=== PATIENT | female | born 1975 | race Two or more races ===

== ENCOUNTER 2020-08-07 14:39 | Outpatient (REF) | payer OTHER, SELFPAY | END 2020-08-07 14:40 | disposition home or self-care (01) | LOC: HO.LAB 14:39 | PROVIDERS: Visit Provider Internal Medicine | DX: Z20.828 Contact with and (suspected) exposure to other viral communicable diseases (principal) | CPT/HCPCS: C9803; U0003 ==

== ENCOUNTER 2020-08-27 09:41 | Outpatient (REF) | payer OTHER, SELFPAY ==
[2020-08-27 11:08] LABS: Alanine Aminotransferase 21 U/L (0-31); Albumin Level 4.6 g/dL (3.5-5.0); Alkaline Phosphatase 46 U/L (39-117); Anion Gap 13 (12-20); Aspartate Amino Transferase 21 U/L (5-31); Bilirubin Total 0.4 mg/dL (0.0-1.0); Blood Urea Nitrogen 17 mg/dL (9-16); Calcium 9.2 mg/dL (8.4-10.2); Carbon Dioxide 30 mmol/L (22-29); Chloride 104 mmol/L (96-108); Cholesterol 218 mg/dL; Estimated Glomerular Filt Rate > 60; Glucose Fasting 100 mg/dL (60-99); HDL Cholesterol 60 mg/dL; LDL Cholesterol Calculated 139 mg/dl; Potassium 5.1 mmol/l (3.3-5.1); Sodium 142 mmol/L (135-145); Total Protein 7.4 g/dL (6.5-8.0); Triglycerides 96 mg/dL
[2020-08-27 11:17] LABS: Estimated Average Glucose 131 mg/dL; Hemoglobin A1c % 6.2 %
[2020-08-27 11:29] LABS: TSH reflex Free T4 73.63 mIU/mL (0.32-4.0)
[2020-08-27 12:03] LABS: Free T4 (Free Thyroxine) 0.45 ng/dL (0.71-1.85)
== END 2020-08-27 09:42 | disposition home or self-care (01) ==
LOC: HO.LAB 09:41
PROVIDERS: PCP Physician Assistant; Visit Provider Physician Assistant
DX: E03.9 Hypothyroidism, unspecified (principal); F41.1 Generalized anxiety disorder; Z13.220 Encounter for screening for lipoid disorders; Z13.1 Encounter for screening for diabetes mellitus
CPT/HCPCS: 36415; 80053; 80061; 83036; 84439; 84443

== ENCOUNTER 2020-10-15 08:35 | Outpatient (REF) | payer OTHER, SELFPAY ==
[2020-10-15 09:28] LABS: Anion Gap 12 (12-20); Blood Urea Nitrogen 16 mg/dL (9-16); Calcium 9.1 mg/dL (8.4-10.2); Carbon Dioxide 31 mmol/L (22-29); Chloride 102 mmol/L (96-108); Estimated Glomerular Filt Rate > 60; Glucose Random 106 mg/dL (60-115); Sodium 140 mmol/L (135-145)
[2020-10-15 09:50] LABS: TSH reflex Free T4 3.43 uIU/mL (0.32-4.0)
== END 2020-10-15 08:36 | disposition home or self-care (01) ==
LOC: HO.LAB 08:35
PROVIDERS: PCP Physician Assistant; Visit Provider Physician Assistant
DX: E03.9 Hypothyroidism, unspecified (principal)
CPT/HCPCS: 36415; 80048; 84443

== ENCOUNTER 2021-02-10 08:05 | Outpatient (REF) | payer OTHER, SELFPAY ==
[2021-02-10 09:30] LABS: Alanine Aminotransferase 33 U/L (0-31); Albumin Level 4.6 g/dL (3.5-5.0); Alkaline Phosphatase 56 U/L (39-117); Anion Gap 12 (12-20); Aspartate Amino Transferase 27 U/L (5-31); Bilirubin Total 0.4 mg/dL (0.0-1.0); Blood Urea Nitrogen 13 mg/dL (9-16); Calcium 9.1 mg/dL (8.4-10.2); Carbon Dioxide 29 mmol/L (22-29); Chloride 103 mmol/L (96-108); Cholesterol 169 mg/dL; Estimated Glomerular Filt Rate > 60; Glucose Fasting 101 mg/dL (60-99); HDL Cholesterol 57 mg/dL; Potassium 4.6 mmol/L (3.3-5.1); Sodium 139 mmol/L (135-145); Total Protein 7.4 g/dL (6.5-8.0)
[2021-02-10 09:32] LABS: LDL Cholesterol Calculated 99 mg/dl; Triglycerides 65 mg/dL
[2021-02-10 09:51] LABS: TSH reflex Free T4 0.24 uIU/mL (0.32-4.0)
[2021-02-10 10:32] LABS: Free T4 (Free Thyroxine) 1.19 ng/dL (0.71-1.85)
== END 2021-02-10 08:06 | disposition home or self-care (01) ==
LOC: HO.LAB 08:05
PROVIDERS: PCP Physician Assistant; Visit Provider Physician Assistant
DX: E03.9 Hypothyroidism, unspecified (principal)
CPT/HCPCS: 36415; 80053; 80061; 84439; 84443

== ENCOUNTER 2021-08-12 10:07 | Outpatient (REF) | payer OTHER, SELFPAY | END 2021-08-12 10:08 | disposition home or self-care (01) | LOC: HO.HMGCLDS 10:07 | PROVIDERS: Visit Provider Internal Medicine | DX: Z20.822 Contact with and (suspected) exposure to COVID-19 (principal) | CPT/HCPCS: C9803; U0003; U0005 ==

== ENCOUNTER 2022-01-18 08:27 | Outpatient (REF) | payer OTHER, SELFPAY ==
[2022-01-18 09:10] LABS: Hematocrit 38.2 % (37.0-47.0); Hemoglobin 11.9 g/dl (12.0-16.0); Mean Corpuscular HGB Conc 31.2 g/dl (31.0-35.0); Mean Corpuscular Hemoglobin 24.5 pg (27.0-33.0); Mean Corpuscular Volume 78.8 fL (80.0-98.0); Mean Platelet Volume 9.5 fL (9.4-12.3); Platelet Count 274 X10*3/uL (160-400); Red Blood Count 4.85 X10*6/uL (4.20-5.50); Red Cell Distribution Width 16.9 % (11.0-16.0); White Blood Count 4.8 X10*3/uL (4.8-10.8)
[2022-01-18 09:33] LABS: Alanine Aminotransferase 22 U/L (0-31); Aspartate Amino Transferase 17 U/L (5-31); HDL Cholesterol 62 mg/dL; Iron 180 mcg/dL (30-160); Lipase 58 U/L (8-78); Percent Iron Saturation 47 % (15-50); Total Iron Binding Capacity 385 mcg/dL (228-428); Unsaturated Iron Binding 205 ug/dL
[2022-01-18 09:42] LABS: Estimated Average Glucose 120 mg/dL; Hemoglobin A1c % 5.8 %
[2022-01-18 09:56] LABS: TSH reflex Free T4 13.68 uIU/mL (0.32-4.0)
[2022-01-18 10:28] LABS: Free T4 (Free Thyroxine) 0.97 ng/dL (0.71-1.85)
[2022-01-18 12:59] LABS: Albumin Level 4.7 g/dL (3.5-5.0); Alkaline Phosphatase 60 U/L (39-117); Anion Gap 14 (12-20); Bilirubin Total 0.7 mg/dL (0.0-1.0); Blood Urea Nitrogen 20 mg/dL (9-16); Calcium 9.3 mg/dL (8.4-10.2); Carbon Dioxide 25 mmol/L (22-29); Chloride 105 mmol/L (96-108); Cholesterol 177 mg/dL; Estimated Glomerular Filt Rate > 60; Glucose Fasting 118 mg/dL (60-99); LDL Cholesterol Calculated 100 mg/dl; Potassium 4.8 mmol/L (3.3-5.1); Sodium 139 mmol/L (135-145); Total Protein 7.5 g/dL (6.5-8.0); Triglycerides 75 mg/dL
== END 2022-01-18 08:28 | disposition home or self-care (01) ==
LOC: HO.LAB 08:27
PROVIDERS: PCP Physician Assistant; Visit Provider Physician Assistant
DX: Z13.1 Encounter for screening for diabetes mellitus (principal); Z13.220 Encounter for screening for lipoid disorders; R10.13 Epigastric pain; E03.9 Hypothyroidism, unspecified; D50.9 Iron deficiency anemia, unspecified
CPT/HCPCS: 36415; 80053; 80061; 83036; 83540; 83690; 84439; 84443; 85027

== ENCOUNTER 2022-02-05 09:49 | Outpatient (REF) | payer OTHER, SELFPAY | END 2022-02-05 09:50 | disposition home or self-care (01) | LOC: HO.XRAY 09:49 | PROVIDERS: PCP Physician Assistant; Visit Provider Physician Assistant | DX: Z13.89 Encounter for screening for other disorder (principal) ==

== ENCOUNTER 2022-02-23 09:50 | Outpatient (REF) | payer OTHER, SELFPAY ==
--- NOTE | ~2022-02-23 | FL_ITS ---
EXAMINATION: XR FLUOROSCOPY UPPER GI WITH AIR CLINICAL INFORMATION: Abdominal distention. COMPARISON: 04/18/2006 report. TECHNIQUE: Air-contrast upper GI examination. FINDINGS: Patient swallowed thin and thick barium and half-inch diameter barium tablet without difficulty. Effervescent crystals were given for the study. There is normal apposition of the vocal cords while saying E. There is normal elevation of the soft palate while saying candy. No nasopharyngeal reflux or tracheal aspiration was identified. There is normal esophageal motility without persistent stricture or mucosal abnormality. No hiatal hernia was identified. No gastroesophageal reflux was elicited including with water siphon test. The stomach demonstrated normal distensibility without evidence of abnormal mass or ulceration. There is a question of some filling defects about the fundus however these were seen to represent gastric folds. There was no delay in gastric emptying. The duodenal bulb and sweep appeared unremarkable. FLUOROSCOPY TIME: 1.5 minutes. DOSE AREA PRODUCT: 8.770 uGy-cm2 (boland-centimeter squared) FL/FL upper GI w air IMPRESSION: Normal air-contrast upper GI examination.
== END 2022-02-23 09:51 | disposition home or self-care (01) ==
LOC: HO.XRAY 09:50
PROVIDERS: PCP Physician Assistant; Visit Provider Physician Assistant
DX: R14.0 Abdominal distension (gaseous) (principal)
CPT/HCPCS: 74246

== ENCOUNTER 2022-05-13 12:23 | Outpatient (REF) | payer OTHER, SELFPAY ==
[2022-05-13 13:57] LABS: TSH reflex Free T4 0.32 uIU/mL (0.32-4.0)
== END 2022-05-13 12:24 | disposition home or self-care (01) ==
LOC: HO.LAB 12:23
PROVIDERS: PCP Physician Assistant; Visit Provider Nurse Practitioner Family
DX: E03.9 Hypothyroidism, unspecified (principal)
CPT/HCPCS: 36415; 84443

== ENCOUNTER 2025-01-29 09:16 | Outpatient (REF) | payer MEDICAID, SELFPAY ==
--- OUTSIDE RECORDS SUMMARY | 2025-01-29 09:55 | XMS_ITS | Clinical Summary ---
Author Organization [facility] Address [address] [place] [address] Care Team Providers Care Cheese Cooker Name Role Phone Richard Anderson Primary Care Provider Allergies Active Allergy Reactions Criticality Noted Date Comments Penicillins 03/11/2017 Medications Medication Sig Dispensed Refills Start Date End Date Status levothyroxine (SYNTHROID, LEVOXYL) tablet 125 mcg TAKE 1 TABLET (125 MCG TOTAL) BY MOUTH EVERY MORNING ON AN EMPTY STOMACH. 30 tablet 5 12/14/2019 Active venlafaxine (EFFEXOR-XR) 150 MG 24 hr capsule 0 05/31/2021 Active temazepam (RESTORIL) 30 MG capsule Take 1 capsule (30 mg total) by mouth every night at bedtime as needed for sleep. 30 capsule 1 06/26/2021 Active Active Problems Problem Noted Date Diagnosed Date COVID-19 virus infection 10/03/2020 Osteopenia of multiple sites 04/01/2020 Weight loss 10/02/2019 BRCA1 gene mutation positive in female 8 Acquired hypothyroidism 11/01/2017 Insomnia 11/01/2017 Malignant neoplasm of upper- outer quadrant of right breast in female, estrogen receptor positive 07/12/2017 Cancer Staging:Pathologic stage from 01/26/2016:Stage IA(pT1b, pN0, cM0, G1, ER: Positive, [place]: Positive, HER2: Negative, Oncotype DX score: 10) - Signed by Karan Martinez MD on 11/19/2018 Genetic susceptibility to malignant neoplasm of breast 07/12/2017 Hot flashes related to aromatase inhibitor thera py 07/12/2017 Anxiety 07/12/2017 Nausea 07/12/2017 New daily persistent headache 07/12/2017 Resolved Problems Problem Noted Date Diagnosed Date Resolved Date BRCA2 gene mutation positive in female 01/31/2018 07/25/2018 Family History Medical History Relation Name Comments Cancer Maternal Aunt ovarian ca Cancer Maternal Grandmother uterine ca. Cancer Mother breast ca Cancer Paternal Uncle head ,neck ca . Relation Name Status Comments Maternal Aunt Maternal Grandmother Mother Paternal Uncle Social History Tobacco Use Types Packs/Day Years Used Date Smoking Tobacco: Never Smokeless Tobacco: Never Alcohol Use Standard Drinks/Week Comments No 0 (1 standard drink = 0.6 oz pur e alcohol) ocacasinaly Sex and Gender Information Value Date Recorded Sex Assigned at Not on file Gender Identity Not on file Sexual Orientation Not on file Job Start Date Occupation Industry Not on file Not on file Not on file Last Filed Vital Signs Vital Sign Reading Time Taken Comments Blood Pressure 121/76 05/07/2022 3:00 PM EDT Pulse 87 05/07/2022 3:00 PM EDT Temperature 36 C (96.8 F) 05/07/2022 3:00 PM EDT Respiratory Rate 16 05/07/2022 3:00 PM EDT Oxygen Saturation 100% 05/07/2022 3:00 PM EDT ROOM AIR Inhaled Oxygen Concentration - - Weight 79.3 kg (174 lb 12.8 oz) 06/26/2021 2:27 PM EST Height 162.6 cm (5' 4 ) 06/26/2021 2:27 PM EST Body Mass Index 30 06/26/2021 2:27 PM EST Plan of Treatment Health Maintenance Due Date Last Done Comments Hepatitis B Vaccines (1 of 3 - 3-dose series) 1973 Hepatitis C Screening 1973 COVID-19 Vaccine (#1) 1978 Pneumococcal Vaccine (1 of 2 - PCV) 1979 Depression Screening 1985 Preventative Health Evaluation 1991 DTap / Tdap / Td (1 - Tdap) 1992 Shingrix-Zoster Vaccine (1 of 2) 1992 Cervical Cancer Screening (P ap Smear) 1994 Colon Cancer Screening (Colonoscopy) 2018 Breast Cancer Screening (Mammogram) 2023 Influenza Vaccine (Season Ended) 2025 RSV Ped < 20 months Aged Out No longe r eligible based on patient's age to complete this topic Care Teams Cheese Cooker Relationship Specialty Start Date End Date Richard Anderson PA [address] [place] [phone] PCP - General Physician Hand Gluer And Slicer 06/26/21
[2025-01-29 11:24] LABS: MANUAL DIFF FLAG NO
[2025-01-29 11:37] LABS: Basophils Percent Auto 0.7 % (0-2); Eosinophils Absolute Auto 0.1 X10*3/uL (0.0-0.4); Eosinophils Percent Auto 1.1 % (0-4); Hematocrit 37.8 % (37.0-47.0); Imm Gran Abs Auto 0.01 X10*3/uL (0.00-0.03); Imm Gran Pct Auto 0.2 % (0.0-0.4); Lymphocytes Absolute Auto 2.4 X10*3/uL (1.2-4.9); Lymphocytes Percent Auto 53.5 % (20-40); Mean Corpuscular HGB Conc 31.7 g/dl (31.0-35.0); Mean Corpuscular Hemoglobin 24.5 pg (27.0-33.0); Mean Corpuscular Volume 77.1 fL (80.0-98.0); Mean Platelet Volume 10.7 fL (9.4-12.3); Monocytes Absolute Auto 0.6 X10*3/uL (0.1-1.2); Monocytes Percent Auto 12.5 % (2-11); Neutrophils Absolute Auto 1.4 x10*3/uL (2.0-8.3); Platelet Count 238 X10*3/uL (160-400); Red Cell Distribution Width 15.7 % (11.0-16.0); White Blood Count 4.4 X10*3/uL (4.8-10.8)
[2025-01-29 11:55] LABS: Alanine Aminotransferase 16 U/L (0-31); Albumin Level 4.5 g/dL (3.5-5.0); Alkaline Phosphatase 40 U/L (39-117); Anion Gap 13 (12-20); Aspartate Amino Transferase 20 U/L (5-31); Bilirubin Total 0.3 mg/dL (0.0-1.0); Blood Urea Nitrogen 13 mg/dL (9-16); Calcium 9.3 mg/dL (8.4-10.2); Carbon Dioxide 27 mmol/L (22-29); Chloride 105 mmol/L (96-108); Cholesterol 172 mg/dL (<200); Estimated Glomerular Filt Rate > 60; Glucose Random 89 mg/dL (60-115); HDL Cholesterol 60 mg/dL (>40); LDL Cholesterol Calculated 97 mg/dL (<100); Potassium 4.5 mmol/L (3.3-5.1); Sodium 140 mmol/L (135-145); Total Protein 7.1 g/dL (6.5-8.0); Triglycerides 77 mg/dL (<150)
[2025-01-29 12:13] LABS: TSH reflex Free T4 0.78 uIU/mL (0.32-4.0)
[2025-01-29 12:14] LABS: Valproate 63.9 mcg/mL (50.0-100.0)
== END 2025-01-29 09:17 | disposition home or self-care (01) ==
LOC: HO.HHCL 09:16
PROVIDERS: PCP Family Medicine; Visit Provider Family Medicine
DX: E03.9 Hypothyroidism, unspecified (principal); F31.9 Bipolar disorder, unspecified
CPT/HCPCS: 36415; 80053; 80061; 80164; 84443; 85025

== ENCOUNTER 2025-02-05 13:27 | Outpatient (REF) | payer MEDICAID, SELFPAY ==
--- NOTE | ~2025-02-05 | XR_ITS ---
EXAMINATION: XR CERVICAL SPINE 2-3 VIEWS HISTORY: PAIN COMPARISON: There are no prior studies available for comparison. FINDINGS: AP, lateral, and open-mouth odontoid views of the cervical spine are submitted. Osseous mineralization is normal. Seven cervical vertebral bodies are identified maintaining normal height and alignment without evidence of fracture or subluxation. There are mild degenerative changes are seen at C5-6 and C6-7, with anterior osteophyte formation. The odontoid and lateral masses of C1 are intact. There is no prevertebral soft tissue swelling. XR/XR cervical spine 3V IMPRESSION: Mild degenerative changes. Electronically signed by: Dyllan Swift MD 02/05/2025 03:20 PM EDT
--- NOTE | ~2025-02-05 | XR_ITS ---
EXAMINATION: XR KNEE 4 OR MORE VIEWS LEFT HISTORY: diffuse joint and bone pain, worsening neck and back pain COMPARISON: Comparison is made with the prior examination dated 07/23/2019. FINDINGS: Four views of the left knee are submitted. Osseous mineralization is normal. There is no fracture or dislocation. There is minimal degenerative change of the medial compartment with osteophyte formation. The remaining joint spaces are maintained. The soft tissues are unremarkable. There is no joint effusion. XR/XR knee LT 4V IMPRESSION: Minimal degenerative changes of the medial compartment. Electronically signed by: Dyllan Swift MD 02/05/2025 03:18 PM EDT
--- NOTE | ~2025-02-05 | XR_ITS ---
EXAMINATION: XR KNEE 4 OR MORE VIEWS RIGHT HISTORY: diffuse joint and bone pain, worsening neck and back pain COMPARISON: Comparison is made with the prior examination dated 11/27/2018. FINDINGS: Four views of the right knee are submitted. Osseous mineralization is normal. There is no fracture or dislocation. The joint spaces are preserved. There is a small joint effusion. XR/XR knee RT 4V IMPRESSION: Small joint effusion. Otherwise unremarkable examination of the right knee. Electronically signed by: Dyllan Swift MD 02/05/2025 03:17 PM EDT
--- NOTE | ~2025-02-05 | XR_ITS ---
EXAMINATION: XR HAND 3 OR MORE VIEWS LEFT HISTORY: diffuse joint and bone pain, worsening neck and back pain COMPARISON: There are no prior studies available for comparison. FINDINGS: Four views of the left hand are submitted. Osseous mineralization is normal. There is no fracture or dislocation. The joint spaces are preserved. The soft tissues are unremarkable. XR/XR hand LT min 3V IMPRESSION: Unremarkable examination of the left hand. Electronically signed by: Dyllan Swift MD 02/05/2025 03:15 PM EDT
--- NOTE | ~2025-02-05 | XR_ITS ---
EXAMINATION: XR LUMBOSACRAL SPINE CLINICAL INFORMATION: diffuse joint and bone pain, worsening neck and back pain COMPARISON: None available. TECHNIQUE: Three views of the lumbosacral spine. FINDINGS: Surgical clips are seen projecting left of L4-5 and along the left sacrum and in the lower right hemipelvis. There are 5 nonrib-bearing lumbar segments. Vertebral body height and alignment is preserved. There is mild disc space narrowing T12-L1 and L1-2. XR/XR lumbar spine 2-3V IMPRESSION: Mild degenerative disc disease T12-L1 and L1-2 Electronically signed by: Jim Birch MD 02/06/2025 03:57 PM EDT
--- NOTE | ~2025-02-05 | XR_ITS ---
EXAMINATION: XR HAND 3 OR MORE VIEWS RIGHT HISTORY: diffuse joint and bone pain, worsening neck and back pain COMPARISON: There are no prior studies available for comparison. FINDINGS: Three views of the right hand are submitted. Osseous mineralization is normal. There is no fracture or dislocation. The joint spaces are preserved. The soft tissues are unremarkable. XR/XR hand RT min 3V IMPRESSION: Unremarkable examination of the right hand. Electronically signed by: Dyllan Swift MD 02/05/2025 03:14 PM EDT
--- OUTSIDE RECORDS SUMMARY | 2025-02-05 14:39 | XMS_ITS | Clinical Summary ---
Author Organization [facility] Address [address] [place] [address] Care Team Providers Care Seat Mender Name Role Phone Richard Anderson Primary Care Provider [phone] Allergies Active Allergy Reactions Criticality Noted Date [...] 01/26/2016:Stage IA(pT1b, pN0, cM0, G1, ER: Positive, [place]: Positive, HER2: Negative, Oncotype DX score: 10) [...] age to complete this topic Care Teams Seat Mender Relationship Specialty Start Date End Date Richard Anderson PA [address] [place] [phone] PCP - General Physician Home Care Manager 06/26/21
--- OUTSIDE RECORDS SUMMARY | 2025-02-05 14:39 | XMS_ITS | Encounter Summary ---
Author Organization [employer] Address [address] [place] [address] Care Team Providers Care Security System Technician Name Role Phone Jo Chatman Primary Care Provider + [phone] Encounter Details Date Type Department Care Team (Latest Contact Info) Description 02/05/2025 Travel Social History Tobacco Use Types Packs/Day Years Used Date Smoking Tobacco: Never Smokeless Tobacco: Never Alcohol Use Standard Drinks/Week Comments Never 0 (1 standard drink = 0.6 oz pur e alcohol) Depression Answer Date Recorded Patient Health Questionnaire-9 Score 21 02/05/2025 Patient Health Questionnaire-9 Score 21 02/05/2025 Last PHQ-9: Questionnaire Data Not on file 0 02/05/2025 Housing Stability Answer Date Recorded What is your housing situation today? I have mary zhao 01/29/[address] you li ve. Do you have problems with any of the following? None of the above 01/29/2025 Food Insecurity Answer Date Recorded Within the past 12 months, y ou worried that your food would run out before you got money to buy more: Often true 2024 Within the past 12 months,th e food you bought just didn't last and you didn't have enough money to get more: Sometimes True 02/05/2025 Transportation Answer Date Recorded In the past 12 months, has l ack of transportation kept you from medical appts, meetings, work or from getting things needed for daily living? No 01/29/2025 Utilities Answer Date Recorded In the past 12 months, has t he electric, gas, oil or water company threatened to shut off services in your home? No 01/29/2025 Depression Answer Date Recorded Patient Health Questionnaire-2 Score 6 02/05/2025 Internet Access Answer Date Recorded Internet Access Q1 Yes 01/29/2025 Internet Access Q2 Not on file 01/29/2025 Comments No Sex and Gender Information Value Date Recorded Sex Assigned at Female 01/08/2025 6:29 PM EDT Legal Sex Female 11:03 AM EDT Gender Identity Female 01/08/2025 6:29 PM EDT Sexual Orientation Choose not to disclose 2024 6:29 PM EDT documented as of this encounter Functional Status * Over the past 2 weeks, how often have you been bothered by any of the following problems? Question Answer Date of Assessment Author Patient Health Questionnaire -2 Score 6 02/05/2025 1:52 PM EDT Liseth Silva MA * Little interest or pleasure in doing things Answer Date of Assessment Author Nearly every day 02/05/2025 1:52 PM EDT Liseth Silva MA * Feeling down, depressed, or hopeless Answer Date of Assessment Author Nearly every day 02/05/2025 1:52 PM EDT Liseth Silva MA * Trouble falling or staying asleep, or sleeping too much Answer Date of Assessment Author Nearly every day 02/05/2025 1:52 PM EDT Liseth Silva MA * Feeling tired or having little energy Answer Date of Assessment Author Nearly every day 02/05/2025 1:52 PM EDT Liseth Silva MA * Poor appetite or overeating Answer Date of Assessment Author Nearly every day 02/05/2025 1:52 PM EDT Liseth Silva MA * Feeling bad about yourself - or that you are a failure or have let yourself or your family down Answer Date of Assessment Author Nearly every day 02/05/2025 1:52 PM EDT Liseth Silva MA * Trouble concentrating on things, such as reading the newspaper or watching television Answer Date of Assessment Author Nearly every day 02/05/2025 1:52 PM EDT Liseth Silva MA * Moving or speaking so slowly that other people could have noticed? Or the opposite - being so fidgety or restless that you have been moving around a lot more than usual. Answer Date of Assessment Author Not at all 02/05/2025 1:52 PM EDT Imani Silva MA * Thoughts that you would be better off or hurting yourself in some way Answer Date of Assessment Author Not at all 02/05/2025 1:52 PM EDT Imani Silva MA * Patient Health Questionnaire-9 Score Answer Date of Assessment Author 21 02/05/2025 1:52 PM EDT Imani Silva MA * How difficult have these problems made it for you to do your work, take care of things at home, or get along with other people? Answer Date of Assessment Author Extremely difficult 02/05/2025 1:52 PM EDT Liseth Henry MA * Over the last 2 weeks, how often have you been bothered by any of the following problems? Question Answer Date of Assessment Author Feeling nervous, anxious, or on edge 3 02/05/2025 1:52 PM EDT Liseth Silva MA Not being able to stop or co ntrol worrying 3 02/05/2025 1:52 PM EDT Liseth Silva MA Worrying too much about diff erent things 3 02/05/2025 1:52 PM EDT Liseth Silva MA Trouble relaxing 3 02/05/2025 1:52 PM EDT Liseth Lomas MA Being so restless that it is hard to sit still 3 02/05/2025 1:52 PM EDT Liseth Silva MA Becoming easily annoyed or irritable 3 02/05/2025 1:52 PM EDT Liseth Silva MA Feeling afraid as if somethi ng awful might happen 3 02/05/2025 1:52 PM EDT Liseth Silva MA SYLVESTER-7 Total Score 02/05/2025 1:52 PM EDT Liseth Silva MA documented as of this encounter Plan of Treatment Not on file documented as of this encounter Visit Diagnoses Not on filedocumented in this encounter Additional Health Concerns Assessment Noted Time PHQ-9 Depression Total Score: 02/05/ 025 1:52 PM EDT documented as of this encounter Care Teams Security System Technician Relationship Specialty Start Date End Date Jo Chatman DO [address] [place] [phone] PCP - General Family Medicine 02/05/25 documented as of this encounter
== END 2025-02-05 13:28 | disposition home or self-care (01) ==
LOC: HO.HHCX 13:27
PROVIDERS: PCP Family Medicine; Visit Provider Family Medicine
DX: M54.2 Cervicalgia (principal); M54.9 Dorsalgia, unspecified; G89.29 Other chronic pain; M25.561 Pain in right knee; M25.562 Pain in left knee; M79.642 Pain in left hand; M79.641 Pain in right hand
CPT/HCPCS: 72040; 72100; 73130; 73564

== ENCOUNTER → 2025-02-05 13:40 | Outpatient (BNV) | payer MEDICAID, SELFPAY | PROVIDERS: PCP Family Medicine; Visit Provider Radiology Diagnostic Radiology | DX: M25.562 Pain in left knee (principal); M25.461 Effusion, right knee; M54.2 Cervicalgia; M79.642 Pain in left hand; M79.641 Pain in right hand | CPT/HCPCS: 72040; 73130; 73564 ==

== ENCOUNTER 2025-02-06 09:30 | Outpatient (REF) | payer MEDICAID, SELFPAY ==
--- OUTSIDE RECORDS SUMMARY | 2025-02-06 09:47 | XMS_ITS | Encounter Summary ---
Author Organization [employer] Address [address] [place] [address] Care Team Providers Care Xm1 Tank Driver Name Role Phone Jo Chatman DO Primary Care Provider + [phone] Encounter Details Date Type Department Care Team (Late st Contact Info) Description 02/05/2025 Orders Only [facility] MEDICINE [address] [place] [address] Jo Chatman DO [address] [place] [address] Social History Tobacco Use Types Packs/Day Years [...] -2 Score 6 02/05/2025 1:52 PM EDT Liesth Silva MA * Little interest or pleasure [...] Questionnaire-9 Score Answer Date of Assessment Author 02/05/2025 1:52 PM EDT Imani Silva MA [...] on file documented as of this encounter Procedures Procedure Name Priority Date/Time Associated Diagnosis Comments XR CERVICAL SPINE 3V Routine 02/05/2025 1:40 PM EDT documented in this encounter Results * XR CERVICAL SPINE 3V (02/05/2025 1:40 PM EDT) Anatomical Region Laterality Modality Abdomen Radiographic Connie ging 02/05/2025 1:40 PM EDT Narrative 02/05/2025 3:24 PM EDT [facility] [address] [place] [address] XRay Report Signed Patient: Teri Morales MR#: [id number] 4 : 1975 Acct:[id number] Age/Sex: 49 / F ADM Date: 02/05/25 Loc: .[facility] Attending Dr: Jo Chatman DO Ordering Physician: Jo Chatman DO Date of Service: 02/05/25 Procedure(s): XR cervical spine 3V Accession Number(s): [id number] cc: Jo Chatman DO EXAMINATION: XR CERVICAL SPINE 2-3 VIEWS HISTORY: PAIN COMPARISON: There are no prior studies available for comparison. FINDINGS: AP, lateral, and open-mouth odontoid views of the cervical spine are submitted. Osseous mineralization is normal. Seven cervical vertebral bodies are identified maintaining normal height and alignment without evidence of fracture or subluxation. There are mild degenerative changes are seen at C5-6 and C6-7, with anterior osteophyte formation. The odontoid and lateral masses of C1 are intact. There is no prevertebral soft tissue swelling. XR/XR cervical spine 3V IMPRESSION: Mild degenerative changes. Electronically signed by: Dyllan Swift MD 02/05/2025 03:20 PM EDT Dictated By: Dyllan Swift MD Signed By: <Electronically signed by Dyllan Swift MD in OV> 02/05/25 1520 DD/ 1340 TD/TT: 02/05/25 1400 Feather Stitcher: Procedure Note Donotuseinterpreter, Image - 02/05/2025 [facility] [address] [place] [address] XRay Report Signed Patient: Teri Morales EMR#: [id number] 4 : 1975Acct:[id number] Age/Sex: 49 / FADM Date: 02/05/25 [facility]: Jo Chatman DO Ordering Physician: Jo Chatman DO Date of Service: 02/05/25 Procedure(s): XR cervical spine 3V Accession Number(s): [id number] cc: Jo Chatman DO EXAMINATION: XR CERVICAL SPINE 2-3 VIEWS HISTORY: PAIN COMPARISON: There are no prior studies available for comparison. FINDINGS: AP, lateral, and open-mouth odontoid views of the cervical spine are submitted. Osseous mineralization is normal. Seven cervical vertebral bodies are identified maintaining normal height and alignment without evidence of fracture or subluxation. There are mild degenerative changes are seen at C5-6 and C6-7, with anterior osteophyte formation. The odontoid and lateral masses of C1 are intact. There is no prevertebral soft tissue swelling. XR/XR cervical spine 3V IMPRESSION: Mild degenerative changes. Electronically signed by: Dyllan Swift MD 02/05/2025 03:20 PM EDT Dictated By: Dyllan Swift MD Signed By: <Electronically signed by Dyllan Swift MD in OV> 02/05/25 1520 DD/ 1340 TD/TT: 02/05/25 1400 Feather Stitcher: us Jo Chatman DO IMG XR PROCEDURES Final Resu lt documented in this encounter Visit Diagnoses Not on filedocumented in this encounter Additional Health Concerns Assessment Noted Time PHQ-9 Depression Total Score: 21 025 1:52 PM EDT documented as of this encounter Care Teams Xm1 Tank Driver Relationship Specialty Start Date End Date Jo Chatman DO [address] [place] [address] PCP - General Family Medicine 02/05/25 documented as of this encounter
--- OUTSIDE RECORDS SUMMARY | 2025-02-06 09:47 | XMS_ITS | Clinical Summary ---
Author Organization [facility] Address [address] [place] [address] Care Team Providers Care Sales Team Member Name Role Phone Richard Anderson Primary Care [...] 01/26/2016:Stage IA(pT1b, pN0, cM0, G1, ER: Positive, [place]: Positive, HER2: Negative, Oncotype DX score: 10) [...] age to complete this topic Care Teams Sales Team Member Relationship Specialty Start Date End Date Richard Anderson PA [address] [place] [phone] PCP - General Physician Senior Investment Manager 06/26/21
[2025-02-06 11:48] LABS: Hematocrit 39.5 % (37.0-47.0); Hemoglobin 12.5 g/dl (12.0-16.0); Mean Corpuscular HGB Conc 31.6 g/dl (31.0-35.0); Mean Corpuscular Hemoglobin 24.6 pg (27.0-33.0); Mean Corpuscular Volume 77.6 fL (80.0-98.0); NRBC Abs Auto 0.000 X10*3/uL (0.0-0.012); NRBC Pct Auto 0.0 /100WBC (0.0-0.2); Platelet Count 246 X10*3/uL (160-400); Red Blood Count 5.09 X10*6/uL (4.20-5.50); White Blood Count 3.5 X10*3/uL (4.8-10.8)
[2025-02-06 11:57] LABS: Hemoglobin A1C 130.0449 umol/L; Total Hemoglobin (HGBA1C) 3226.7346 umol/L
[2025-02-06 12:35] LABS: Alanine Aminotransferase 20 U/L (0-31); Albumin Level 4.8 g/dL (3.5-5.0); Alkaline Phosphatase 42 U/L (39-117); Anion Gap 12 (12-20); Aspartate Amino Transferase 28 U/L (5-31); Blood Urea Nitrogen 15 mg/dL (9-16); Calcium 9.3 mg/dL (8.4-10.2); Carbon Dioxide 27 mmol/L (22-29); Chloride 106 mmol/L (96-108); Cholesterol 191 mg/dL (<200); Estimated Glomerular Filt Rate > 60; HDL Cholesterol 59 mg/dL (>40); Potassium 4.2 mmol/L (3.3-5.1); Sodium 141 mmol/L (135-145); Total Protein 7.6 g/dL (6.5-8.0); Triglycerides 101 mg/dL (<150)
[2025-02-06 12:36] LABS: HBS Num1 0.69 mIU/mL (0-7.99); HBc Num1 0.16 S/CO (0.00-0.79); HBsAGNum1 0.31 S/CO (0.00-0.99); HIV Num 1 0.08 S/CO (0.00-0.99); Hepatitis B Surface Antigen Negative (Negative); ~HepC Num1 0.15 S/CO (0.00-0.79); ~Hepatitis B Surface Antibody NONREACTIVE (Nonreactive); ~Hepatitis C Antibody Nonreactive (Nonreactive)
[2025-02-06 12:39] LABS: Free T4 (Free Thyroxine) 1.18 ng/dL (0.71-1.85); Thyroid Stimulating Hormone 0.39 uIU/mL (0.32-4.0)
[2025-02-07 08:43] LABS: ~Hepatitis A Antibody IgG 0.41 S/CO (0.00-0.99)
[2025-02-07 14:14] LABS: CT PCR Urine NOT DETECTED (Not Detect.); NG PCR Urine NOT DETECTED (Not Detect.)
[2025-02-07 23:03] LABS: Rubeola IgG (Measles) >300.00 AU/mL
[2025-02-07 23:18] LABS: Lyme Abs Screen <0.90 index
[2025-02-11 01:19] LABS: TS Negative Control Passed; TS Panel A 4; TS Panel B 2; TS Positive Control Passed; TSpotTB Negative (Negative)
[2025-02-12 21:24] LABS: Anti Nuclear Antibody Screen NEGATIVE (NEGATIVE)
== END 2025-02-06 09:31 | disposition home or self-care (01) ==
LOC: HO.HHCL 09:30
PROVIDERS: PCP Family Medicine; Visit Provider Family Medicine
DX: Z00.00 Encounter for general adult medical examination without abnormal findings (principal)
CPT/HCPCS: 36415; 80048; 80061; 80076; 82306; 83036; 84439; 84443; 85027; 85652; 86038; 86140; 86431; 86481; 86592; 86617; 86618; 86704; 86706; 86708; 86735; 86762; 86765; 86787; 86803; 87340; 87389; 87491; 87591

== ENCOUNTER 2025-04-11 14:28 | Outpatient (REF) | payer MEDICAID, SELFPAY ==
--- OUTSIDE RECORDS SUMMARY | 2025-04-11 15:47 | XMS_ITS | Clinical Summary ---
Author Organization [facility] Address [address] [place] [phone] Phone Care Team Providers Care Master Chef Name Role Phone Fabien Arguello MD Primary Care Provider [phone] Allergies Active Allergy Reactions Criticality Noted Date Comments Penicillins Swelling,Rash Medium 03/11/2017 Medications divalproex (DEPAKOTE) [address] tablet TAKE 1 TABLET BY MOUTH THREE TIMES DAILY DO NOT BREAK, CRUSH, DISSOLVE OR CHEW Active levothyroxine (SYNTHROID, LEVOTHROID) 150 mcg tablet Take 1 tablet (150 mcg total) by mouth 1 (one) time each day. Active traZODone (DESYREL) 50 mg tablet Take 1 tablet (50 mg total) by mouth at bedtime as needed. at bedtime for sleep Active venlafaxine XR (EFFEXOR-XR) 150 mg 24 hr capsule Take 1 capsule (150 mg total) by mouth 1 (one) time each day. Active Active Problems Problem Noted Date Diagnosed Date Age-related osteoporosis wit hout current pathological fracture 02/27/2025 Bipolar disorder, unspecified ([facility] V24, [facility] V28) 02/05/2025 SYLVESTER (generalized anxiety disorder) 02/05/2025 Osteopenia of multiple sites 04/01/2020 GERD (gastroesophageal reflux disease) 9 Malignant neoplasm of right female breast ([facility] V24, [facility] V28) 02/17/2018 BRCA1 gene mutation positive in female 8 Acquired hypothyroidism 11/01/2017 Insomnia 11/01/2017 Anxiety 07/12/2017 Genetic susceptibility to malignant neoplasm of breast 07/12/2017 Encounters Date Type Department Care Team Description 03/08/2025 2:42 PM EDT - 03/08/2025 11:59 PM EDT Hospital Encounter [facility] [address] [phone] Leonardo-Iy Karan garber MD Osteopenia of multiple sites (Primary Dx); Age-related osteoporosis without current pathological fracture Discharge Disposition: Home or Self Care 02/27/2025 1:30 PM EDT Office Visit [facility] Hematology Oncology [address] [place] [phone] Jimyonia-Iy Karan garber MD History of right breast cancer (Primary Dx); Osteopenia, unspecified location; Malignant neoplasm of upper-outer quadrant of right breast in female, estrogen receptor positive (CMS/HCC V24, CMS/HCC V28); Osteopenia of multiple sites; Gastroesophageal reflux disease without esophagitis; Acquired hypothyroidism; BRCA1 gene mutation positive in female; Anxiety from Last 3 Months Immunizations Name Administration Dates Next Due Influenza Quadravalent, MDCK , 0.5ml, preservative free (Flucelvax) 6mo and older 04/30/2019,06/02/2018 Influenza Quadrivalent, 0.5m l, preservative free (Fluarix; FluLaval; Fluzone) ages 6mo and older (Afluria) 3yo and older 05/13/2022,06/09/2021,03/31/2017 Influenza trivalent, with pr eservative (Fluzone; Afluria) 6mo and older 06/14/2015 Pneumococcal polysaccharide 23 valent (Pneumovax 23) 2yo and older 01/19/2022 Tdap Tetanus diptheria acell ular pertussis (Boostrix; Adacel) 7yo and older 06/16/2016 Surgical History Surgery Date Site/Laterality Comments OTHER SURGICAL HISTORY PROCEDURE: MASTECTOMY BRA OOPHORECTOMY PROCEDURE: NM OOPHORECTOMY PARTIAL/TOTAL UNI/BI BREAST LUMPECTOMY 01/26/2016 Right PROCEDURE: HISTORICAL BREAST LUMPECTOMY; COMMENT: w/ sentinel node biopsy. BREAST LUMPECTOMY PROCEDURE:BREAST LUMPECTOMY BREAST SURGERY PROCEDURE:REDUCTION MAMMAPLASTY OOPHORECTOMY PROCEDURE:OOPHORECTOMY;COMMENT:bila teral salpingooophorectomy Medical History Medical History Date Comments GERD (gastroesophageal reflux disease) 04/11/2019 DX:GERD (gastroesophageal reflux disease) Hypothyroidism 04/11/2019 DX:Hypothyroidis m Anxiety 04/11/2019 DX:Anxiety Malignant neoplasm of right female breast (CMS/HCC V24, CMS/HCC V28) 02/17/2018 DX:Malignant neoplasm of ri ght female breast (HCC) BRCA gene mutation positive 02/17/2018 DX:B RCA gene mutation positive Breast cancer (CMS/HCC V24, CMS/HCC V28) DX:Breast cancer (HCC) Disease of thyroid gland DX:Dise ase of thyroid gland;COMMENT:hypothyroidism GERD (gastroesophageal reflux disease) DX:GERD (gastroesophageal reflux disease) Family History Medical History Relation Name Comments Ovarian cancer Aunt maternal at 44 Cancer Father's Brother head ,neck ca. Uterine cancer Maternal Grandfather Cancer Maternal Grandmother uterine ca. Breast cancer Mother Bilateral [place]-age 47 and 68. Cancer Mother breast ca Cancer Mother's Sister ovarian ca Relation Name Status Comments Aunt maternal Father Alive Father's Brother Maternal Grandfather Maternal Grandmother Mother Mother's Sister Social History Tobacco Use Types Packs/Day Years Used Date Smoking Tobacco: Never Smokeless Tobacco: Never Alcohol Use Standard Drinks/Week Comments No 0 (1 standard drink = 0.6 oz pur e alcohol) Comments Unknown Sex and Gender Information Value Date Recorded Sex Assigned at Female 01/09/2025 1:55 PM EDT Legal Sex Female 1:01 AM EST Gender Identity Female 01/09/2025 1:55 PM EDT Sexual Orientation Straight 01/09/2025 1: 55 PM EDT Obstetrics History Last Filed Vital Signs Vital Sign Reading Time Taken Comments Blood Pressure 118/78 03/08/2025 2:49 PM EDT Pulse 73 03/08/2025 2:49 PM EDT Temperature 36.4 C (97.5 F) 03/08/2025 2:49 PM EDT Respiratory Rate 18 03/08/2025 2:49 PM EDT Oxygen Saturation 100% 03/08/2025 2:49 PM EDT Inhaled Oxygen Concentration - - Weight 74.4 kg (164 lb) 02/27/2025 1:30 PM EDT Height - - Body Mass Index - - Plan of Treatment Upcoming Encounters Date Type Department Care Team (Late st Contact Info) Description 04/24/2025 1:30 PM EDT Appointment [facility] Bone Density [address] [place] [phone] 09/06/2025 3:00 PM EST Appointment [facility] [address] [phone] 02/26/2026 11:00 AM EDT Office Visit [facility] Hematology Oncology [address] [place] [phone] Leonardo-Karan Bashir MD [address] [place] [phone] Health Maintenance Due Date Last Done Comments Breast Cancer Screening 1975 Hepatitis B Vaccines (1 of 3 - 19+ 3-dose series) 1992 Zoster Vaccines (1 of 2) 1992 Cervical Cancer Screening: Pap Smear 1994 COVID-19 Vaccine (3 - Pfizer risk series) 01/11/2021 12/14/2020, 11/23/2020 Colorectal Cancer Screening: Colonoscopy 07/15/2022 Social Influencers of Health Screening 07/15/2022 Pneumococcal Vaccine: 50+ Years (2 of 2 - PCV) 01/19/2023 01/19/2022 Depression Screening 08/08/2024 Influenza Vaccine (#1) 2025 , 06/09/2021, 04/30/2019, Additional history exists DTaP,Tdap,and Td Vaccines (2 - Td or Tdap) 06/16/2026 06/16/2016 Osteoporosis Screening (Bone Density Screening) 10/16/2029 10/17/2019 Cholesterol Screening (Lipid Panel) 02/06/2030 02/06/2025, 01/29/2025 HIV Screening Completed 02/06/2025 Hepatitis C Screening Completed 02/06/2025 HIB Vaccines Aged Out No longer eligi ble based on patient's age to complete this topic HPV Vaccines Aged Out No longer eligi ble based on patient's age to complete this topic Hepatitis A Vaccines Aged Out No long er eligible based on patient's age to complete this topic IPV Vaccines Aged Out No longer eligi ble based on patient's age to complete this topic MMR Vaccines Aged Out No longer eligi ble based on patient's age to complete this topic Meningococcal ACWY Vaccine Aged Out N o longer eligible based on patient's age to complete this topic Meningococcal B Vaccine Aged Out No l onger eligible based on patient's age to complete this topic RSV Immunization Patients Under 20 months Aged Out No longer eligible based on patient's age to complete this topic Varicella Vaccines Aged Out No longer eligible based on patient's age to complete this topic Procedures Procedure Name Priority Date/Time Associated Diagnosis Comments [facility] DEXA AXIAL SKELETON Routine 10/17/2019 12:13 PM EDT Other specified disorders of bone density and structure, unspecified site from Last 3 Months or Most Recently Relevant to Health Maintenance Results * [facility] DEXA AXIAL SKELETON (10/17/2019 12:13 PM EDT) Anatomical Region Laterality Modality Mammography 10/17/2019 11:2 7 AM EDT Narrative 10/17/2019 12:13 PM EDT [facility] Diagnostic Imaging Department [address] [place] [address] Patient: JAYCE MORALESRA Sequeira /Age/Sex: 1975 - 44 - F Unit#: [id number] Location/Status: SPDIMAM/REG CLI Mnemonic/Ordering Site: MAMDEXAAX/SPMAM Ordering Physician: KARAN KENNY MD Desiree Dexa Axial Skeleton - 10/17/19 - 1202 HISTORY: The patient is a 44-year-old postmenopausal female with clinical concern for metabolic bone disease. FINDINGS: Dual energy x-ray absorptiometry of the lumbar spine and femurs is performed. The mean bone mineral density at L1-L4 is 1.043 gm/cm2 which is 88% of that of young normals and 87% of that of age matched controls. This yields a T-score of -1.1 and a Z-score of -1.3 which is diagnostic of osteopenia. The mean bone mineral density of the femurs bilaterally is 0.927 gm/cm2 which is 92% of that of young normals and 93% of that of age matched controls. This yields a T-score of -0.6 and a Z-score of -0.5 and there is therefore no evidence of osteoporosis or osteopenia here. However, the T-score of the right femoral neck is -1.2 and that of the left femoral neck is -1.7 which is diagnostic of osteopenia. IMPRESSION: 1. Osteopenia. There has been a decrease of 19.4% in bone mineral density in the lumbar spine since the prior examination of 03/10/2016. There has been a decrease of 5.8% in bone mineral density in the right femur and a decrease of 9.5% in bone mineral density in the left femur. 2. FRAX analysis yields a 10-year probability of major osteoporotic fracture of 2.9% and a 10-year probability of hip fracture of 0.2%. Code 65031 Dictating Physician: YAMILKA CAMPA MD Electronically Signed by: YAMILKA CAMPA MD Dic Date/Time: 10/17/19 1211 Sign date/Time: 10/17/19 1213 Procedure Note Yamilka Campa - 07/27/2022 [facility] Diagnostic Imaging Department [address] [place], [place] [id number] Patient: TERI MORALES Hua /Age/Sex: 1975 - 44 - F Unit#: [id number] Location/Status: SPDIMAM/REG CLI Mnemonic[facility] Ordering Physician: KARAN KENNY MD [facility] Dexa Axial Skeleton - 10/17/19 - 2 HISTORY: The patient is a 44-year-old postmenopausal female withclinical concern for metabolic bone disease. FINDINGS: Dual energy x-ray absorptiometry of the lumbar spine and femursis performed. The mean bone mineral density at L1-L4 is 1.043 gm/cm2 which is88% of that of young normals and 87% of that of age matched controls. Thisyields a T-score of -1.1 and a Z-score of -1.3 which is diagnostic of osteopenia. The mean bone mineral density of the femurs bilaterally is 0.927 gm/jh6pgwrw is 92% of that of young normals and 93% of that of age matched controls.This yields a T-score of -0.6 and a Z-score of -0.5 and there is therefore no evidence of osteoporosis or osteopenia here. However, the T-score of theright femoral neck is -1.2 and that of the left femoral neck is -1.7 which is diagnostic of osteopenia. IMPRESSION: 1. Osteopenia. There has been a decrease of 19.4% in bone mineral densityin the lumbar spine since the prior examination of 03/10/2016. There has kirstin decrease of 5.8% in bone mineral density in the right femur and a decreaseof 9.5% in bone mineral density in the left femur. 2. FRAX analysis yields a 10-year probability of major osteoporoticfracture of 2.9% and a 10-year probability of hip fracture of 0.2%. Code 64516 Dictating Physician: YAMILKA CAMPA MD Electronically Signed by: YAMILKA CAMPA MD Dic Date/Time: 10/17/19 1211 Sign date/Time: 10/17/19 1213 Subramony Subramonia-Mckay S[facility] IMG BI PROCEDURES F inal Result from Last 3 Months or Most Recently Relevant to Health Maintenance Insurance [place] - [place] [facility] Care Teams Master Chef Relationship Specialty Start Date End Date Fabien Arguello MD [address] [place] [address] PCP - General Family Medicine 01/09/25
--- OUTSIDE RECORDS SUMMARY | 2025-04-11 15:47 | XMS_ITS | Clinical Summary ---
Author Organization [facility] Address [address] [place] [address] Care Team Providers Care Integration Software Developer Name Role Phone Rihcard Anderson Primary Care Provider [phone] Allergies Active Allergy Reactions Criticality Noted Date [...] 01/26/2016:Stage IA(pT1b, pN0, cM0, G1, ER: Positive, KS: Positive, HER2: Negative, Oncotype DX score: 10) [...] Breast Cancer Screening (Mammogram) 2023 Influenza Vaccine (#1) 2025 RSV Ped < 20 months Aged Out No longe r eligible based on patient's age to complete this topic Care Teams Integration Software Developer Relationship Specialty Start Date End Date Richard Anderson PA [address] [place] [phone] PCP - General Physician Bonding Supervisor 06/26/21
--- OUTSIDE RECORDS SUMMARY | 2025-04-11 15:47 | XMS_ITS ---
Author Organization [facility] Address [address] [place] [address] Care Team Providers Care Arc Welder Name Role Phone Richard Anderson Primary Care Provider [phone] Active Problems Problem Noted Date Diagnosed Date COVID-19 virus infection 10/03/2020 Osteopenia of multiple sites 04/01/2020 Weight loss 10/02/2019 BRCA1 gene mutation positive in female 8 Acquired hypothyroidism 11/01/2017 Insomnia 11/01/2017 Malignant neoplasm of upper- outer quadrant of right breast in female, estrogen receptor positive 07/12/2017 Cancer Staging:Pathologic stage from 01/26/2016:Stage IA(pT1b, pN0, cM0, G1, ER: Positive, HI: Positive, HER2: Negative, Oncotype DX score: 10) - Signed by Kraan Martinez MD on 11/19/2018 Genetic susceptibility to malignant neoplasm of breast 07/12/2017 Hot flashes related to aromatase inhibitor thera py 07/12/2017 Anxiety 07/12/2017 Nausea 07/12/2017 New daily persistent headache 07/12/2017 Current Oncology Plans No current plan information found. Past Plans Radiation Treatments * No radiation treatments are documented for this patient in [facility]. Treatments may have been administered in another system. Resolved Problems Problem Noted Date Diagnosed Date Resolved Date BRCA2 gene mutation positive in female 01/31/2018 07/25/2018
--- OUTSIDE RECORDS SUMMARY | 2025-04-11 15:47 | XMS_ITS | Clinical Summary ---
Author Organization [employer] Address [address] [facility] [address] [place] [address] Care Team Providers Care Corporate Director Talent Assessment Name Role Phone GinetteJo patel Primary Care Provider [phone] Allergies Active Allergy Reactions Criticality Noted Date Comments Penicillin V Rash Low 01/08/2025 Medications * This document contains information received from the source organization and may not represent a complete record from that organization. divalproex (Depakote) 500 MG EC tabletIndication s:Bipolar affective disorder, remission status unspecified (CMS/HCC) Take 1 tablet (500 mg) by mouth 3 times daily. Do not crush, chew, or split. 90 tablet 2 01/08/2025 Active traZODone (Desyrel) 50 MG tabletIndication s:Bipolar affective disorder, remission status unspecified (CMS/HCC) Take 1 tablet (50 mg) by mouth if needed at bedtime for sleep. 30 tablet 2 01/08/2025 Active venlafaxine XR (Effexor XR) 150 MG 24 hr tabletIndication s:Bipolar affective disorder, remission status unspecified (CMS/HCC) Take 1 tablet (150 mg) by mouth with breakfast. Do not crush, chew, or split. 30 tablet 2 01/08/2025 Active levothyroxine (Synthroid) 150 MCG tabletIndication s:Hypothyroidism , unspecified type Take 1 tablet (150 mcg) by mouth Once per day. 30 tablet 2 01/08/2025 Active naproxen (Naprosyn) 500 MG tabletIndication s:Jenkins cyst, left,Pain in both knees, unspecified chronicity Take 1 tab twice daily gilda food x 5 days then as needed 20 tablet 03/07/2025 Active acetaminophen (Tylenol Extra Strength) 500 MG tabletIndication s:Jenkins cyst, left,Pain in both knees, unspecified chronicity Take 2 tabs every 8 hrs as needed for pain 30 tablet 03/07/2025 Active Active Problems Problem Noted Date Diagnosed Date Jenkins cyst, left 2025 Pain in both knees 2025 Tendinopathy of knee 2025 Age-related osteoporosis wit hout current pathological fracture 02/27/2025 SYLVESTER (generalized anxiety disorder) 02/05/2025 Assessment & Plan (02/13/2025 12:17 PM EDT): During IBH Consult Teri presenting with excessive worry/anxiety, difficulty controlling worry, anxiety/worry associated to restlessness and/or feeling keyed-up/On edge , easily fatigued , difficulty concentrating and/or mind going blank , irritability, muscle tension , and sleep disturbance difficulty falling asleep, Fear , and sense of dread and Abnormally elevated mood, Decreased need for sleep, and Other: impulsivity, irritability, feeling overwhelmed by constant racing thoughts, visual hallucinations (no commanding voice) and increase energy ; for a period of 6-12 mo, for most or all symptoms in the context of family issues, illness or family illness, and recent move. Teri relocated from [place] six months ago. Current triggers are causing significant increase of sxs. Pt unable to self-regulate with own coping strategies. More information is needed to make official diagnosis for bipolar dx. Due to severity of sxs patient prefers to isolate from others. Various aspects of her life has being affected by the patient's current mental health challenges. Bipolar disorder, unspecified 02/05/2025 Assessment & Plan (02/13/2025 12:18 PM EDT): During IBH Consult Teri presenting with excessive worry/anxiety, difficulty controlling worry, anxiety/worry associated to restlessness and/or feeling keyed-up/On edge , easily fatigued , difficulty concentrating and/or mind going blank , irritability, muscle tension , and sleep disturbance difficulty falling asleep, Fear , and sense of dread and Abnormally elevated mood, Decreased need for sleep, and Other: impulsivity, irritability, feeling overwhelmed by constant racing thoughts, visual hallucinations (no commanding voice) and increase energy ; for a period of 6-12 mo, for most or all symptoms in the context of family issues, illness or family illness, and recent move. Teri relocated from [place] six months ago. Current triggers are causing significant increase of sxs. Pt unable to self-regulate with own coping strategies. More information is needed to make official diagnosis for bipolar dx. Due to severity of sxs patient prefers to isolate from others. Various aspects of her life has being affected by the patient's current mental health challenges. Osteopenia of multiple sites 04/01/2020 GERD (gastroesophageal reflux disease) 9 Acquired hypothyroidism 11/01/2017 Insomnia 11/01/2017 Anxiety 07/12/2017 Genetic susceptibility to malignant neoplasm of breast 07/12/2017 Malignant neoplasm of upper- outer quadrant of right breast in female, estrogen receptor positive 07/12/2017 Encounters * This document contains information received from the source organization and may not represent a complete record from that organization. Date Type Department Care Team Description 04/10/2025 Population Health Risk Score [facility] () Department [address] [phone] Provider, Population Health Generic 03/21/2025 Telephone [facility] [address] [place] [address] [phone] Jo Chatman DO Medication Question 03/12/2025 Patient Outreach [facility] [address] [place], [place] [phone] Jo Chatman DO Transition Of Care (Tcm) (HDF unscheduled ) 03/07/2025 1:00 PM EDT Office Visit [facility] [address] [place] [address] [phone] Viridiana Salter, YARD DRIVER Pain in both knees, unspecified chronicity (Primary Dx); Jenkins cyst, left; Tendinopathy of knee 03/07/2025 Travel 03/07/[address] [phone] Jo Chatman DO Nurse Triage 02/12/[address] [phone] Jo Chatman DO 02/05/2025 10:45 AM EDT Office Visit [facility] [address] [place] [address] Jo Chatman DO Routine history and physical examination of adult (Primary Dx); Chronic neck and back pain; Polyarthralgia 02/05/2025 Orders Only [facility] [address] [place] [address] Jo Chatman DO 02/05/2025 Travel 01/29/2025 Patient Outreach [facility] [address] [place] [address] Jo Chatman DO Pre-visit Planning (SDOH negative, Tobacco screening negative. ) 01/29/2025 Telephone [facility] [address] [place] [address] Jo Chatman DO Chart Prep from Last 3 Months Immunizations Immunization Administration Dates Next Due Influenza Injectable Quadriv alant Preservative Free IIV4 MDCK 04/30/2019,06/02/2018 Influenza injectable quadriv alent preservative free 05/13/2022,06/09/2021,03/31/2017 Influenza, IIV3, injectable 06/14/2015 Pneumococcal Polysaccharide PPSV23 01/19/2022 Tdap 06/16/2016 Family History Medical History Relation Name Comments Diabetes Brother Heart disease Brother Hyperlipidemia Brother Diabetes Father Hypertension Father Breast cancer Mother Diabetes Mother Hypertension Mother Depression Mother's Sister Ovarian cancer Mother's Sister Relation Name Status Comments Brother Father Mother Mother's Sister Social History Tobacco Use Types Packs/Day Years Used Date Smoking Tobacco: Never Passive Smoke Exposure: Never Smokeless Tobacco: Never Tobacco Cessation:Counseling Given: Not Answered Alcohol Use Standard Drinks/Week Comments Never 0 [...] not to disclose 2024 6:29 PM EDT Last Filed Vital Signs Vital Sign Reading Time Taken Comments Blood Pressure 130/82 03/07/2025 12:58 PM EDT Pulse 63 03/07/2025 12:58 PM EDT Temperature 36.9 C (98.4 F) 03/07/2025 12:58 PM EDT Respiratory Rate 16 03/07/2025 12:58 PM EDT Oxygen Saturation 98% 03/07/2025 12:58 PM EDT Inhaled Oxygen Concentration - - Weight 75 kg (165 lb 6 oz) 03/07/2025 12:58 PM E DT Height 165.1 cm (5' 5 ) 03/07/2025 12:58 PM EDT Body Mass Index 27.52 03/07/2025 12:58 PM EDT Plan of Treatment Health Maintenance Due Date Last Done Comments CT Colonography 1973 Colonoscopy 1973 Colorectal Cancer Screening 1973 FIT DNA/Cologuard 1973 FIT 1973 FOBT 1973 Mammogram 1973 Sigmoidoscopy 1973 Family Planning (PISQ) 1988 Hepatitis B Vaccines (1 of 3 - 19+ 3-dose series) 1992 Pneumococcal Vaccine: 50+ Years (2 of 2 - PCV) 2023 01/19/2022 Zoster Vaccines (1 of 2) 2023 COVID-19 Vaccine (3 - season) 2025 12/14/2020, 11/23/2020 Influenza Vaccine (#1) 2025 , 06/09/2021, 04/30/2019, Additional history exists Depression Monitoring 08/08/2025 02/05/2025, 025 Alcohol/Substance Use Screening 02/05/2026 02/05/2025 Disability Screening 02/05/2026 02/05/2025 SDOH Screening 02/05/2026 02/05/2025 Diabetes: Hemoglobin A1C 02/06/2026 02/06/2025 Tobacco Screening 03/07/2026 03/07/2025 DTaP/Tdap/Td Vaccines (2 - Td or Tdap) 06/16/2026 06/16/2016 RSV Patients and Patients Aged 60 years or older (1 - 1-dose 75+ series) 2048 HIV Screening Completed 02/06/2025 Hepatitis C Screening [...] patient's age to complete this topic Meningococcal Vaccine Aged Out No angela joe eligible based on patient's age to complete this topic RSV under 20 months Aged Out No longe r eligible based on patient's age to complete this topic Rotavirus Vaccines Aged Out No longer eligible based on patient's age to complete this topic Procedures Procedure Name Priority Date/Time Associated Diagnosis Comments CHLAMYDIA/TRICHOMONAS/ NEISSERIA GONORRHOEAE, PCR, URINE Routine 02/06/2025 9:40 AM EDT HEPATITIS B CORE AB TOTAL Routine 02/06/2025 9:40 AM EDT Routine history and physical examination of adult HEPATITIS A ANTIBODY, TOTAL Routine 02/06/2025 9:40 AM EDT Routine history and physical examination of adult T-SPOT(R).TB Routine 02/06/2025 9:40 AM EDT Routine history and physical examination of adult MEASLES, MUMPS, AND RUBELLA (MMR) AB (IGG) PANEL, IMMUNE STATUS Routine 02/06/2025 9:40 AM EDT Routine history and physical examination of adult VARICELLA ZOSTER ANTIBODY, IGG Routine 02/06/2025 9:40 AM EDT Routine history and physical examination of adult C-REACTIVE PROTEIN Routine 02/06/2025 9: 40 AM EDT Routine history and physical examination of adult SED RATE BY MODIFIED WESTERGREN Routine 02/06/2025 9:40 AM EDT Routine history and physical examination of adult RHEUMATOID FACTOR Routine 02/06/2025 9:4 0 AM EDT Routine history and physical examination of adult LYME DISEASE AB W/REFL TO BLOT (IGG, IGM) Routine 02/06/2025 9:40 AM EDT Routine history and physical examination of adult YOON SCREEN, IFA, W/REFL TITER AND PATTERN Routine 02/06/2025 9:40 AM EDT Routine history and physical examination of adult HEPATITIS B SURFACE ANTIBODY, QUALITATIVE Routine 02/06/2025 9:40 AM EDT Routine history and physical examination of adult RPR (MONITOR) W/REFL TITER Routine 02/06/2025 9:40 AM EDT Routine history and physical examination of adult HEPATITIS C AB W/REFL TO HCV RNA, QN, PCR Routine 02/06/2025 9:40 AM EDT Routine history and physical examination of adult HIV 1/2 ANTIGEN/ANTIBODY, FOURTH GENERATION W/RFL Routine 02/06/2025 9:40 AM EDT Routine history and physical examination of adult HEPATITIS B SURFACE ANTIGEN, EIA Routine 02/06/2025 9:40 AM EDT Routine history and physical examination of adult BASIC METABOLIC PANEL Routine 02/06/2025 9:40 AM EDT Routine history and physical examination of adult CBC Routine 02/06/2025 9:40 AM EDT Routine history and physical examination of adult HEMOGLOBIN A1C Routine 02/06/2025 9:40 AM EDT Routine history and physical examination of adult HEPATIC FUNCTION PANEL Routine 9:40 AM EDT Routine history and physical examination of adult VITAMIN D,25-OH,TOTAL,IA Routine 02/06/2025 9:40 AM EDT Routine history and physical examination of adult TSH Routine 02/06/2025 9:40 AM EDT Routine history and physical examination of adult LIPID PANEL, STANDARD Routine 02/06/2025 9:40 AM EDT Routine history and physical examination of adult T4, FREE Routine 02/06/2025 9:40 AM EDT Routine history and physical examination of adult XR CERVICAL SPINE 3V Routine 02/05/2025 1:40 PM EDT XR HAND 3+ VIEWS RIGHT Routine 1:27 PM EDT Chronic neck and back pain Polyarthralgia XR HAND 3+ VIEWS LEFT Routine 02/05/2025 1:25 PM EDT Chronic neck and back pain Polyarthralgia XR LUMBAR SPINE 2-3 VIEWS Routine 02/05/2025 1:13 PM EDT Chronic neck and back pain Polyarthralgia XR KNEE 4+ VIEWS RIGHT Routine 1:10 PM EDT Chronic neck and back pain Polyarthralgia XR KNEE 4+ VIEWS LEFT Routine 02/05/2025 1:07 PM EDT Chronic neck and back pain Polyarthralgia TSH W/REFLEX TO FT4 Routine 01/29/2025 9 :22 AM EDT Hypothyroidism, unspecified type VALPROIC ACID Routine 01/29/2025 9:22 AM EDT Bipolar affective disorder, remission status unspecified (CMS/HCC) CBC WITH AUTO DIFFERENTIAL Routine 01/29/2025 9:22 AM EDT Bipolar affective disorder, remission status unspecified (CMS/HCC) COMPREHENSIVE METABOLIC PANEL Routine 01/29/2025 9:22 AM EDT Bipolar affective disorder, remission status unspecified (CMS/HCC) LIPID PANEL, STANDARD Routine 01/29/2025 9:22 AM EDT Hypothyroidism, unspecified type from Last 3 Months Results * Chlamydia/Trichomonas/Neisseria gonorrhoeae, PCR, Urine (02/06/2025 9:40 AM EDT) [facility] CT PCR, Urine NOT DETECTED Not Detect. [facility] Comment:A not detected test result does not exclude the possibilityof infection because test results can be affected byimproper specimen collection, concurrent antibiotic therapy,or the number of organisms in the specimen which may bebelow the sensitivity of the test. As with many diagnostictests, results from the Xpert CT/NG assay should beinterpreted in conjunction with other laboratory andclinical data available to the clinician.The Xpert CT/NG assay should not be used for the evaluationof suspected sexual abuse or for other medico-legalindications. Additional testing is recommended in anycircumstance when false positive or false negative resultscould lead to adverse medical, social or psychologicalconsequences. NG PCR, Urine NOT DETECTED Not Detect. [facility] Comment:A not detected test result does not exclude the possibilityof infection because test results can be affected byimproper specimen collection, concurrent antibiotic therapy,or the number of organisms in the specimen which may bebelow the sensitivity of the test. As with many diagnostictests, results from the Xpert CT/NG assay should beinterpreted in conjunction with other laboratory andclinical data available to the clinician.The Xpert CT/NG assay should not be used for the evaluationof suspected sexual abuse or for other medico-legalindications. Additional testing is recommended in anycircumstance when false positive or false negative resultscould lead to adverse medical, social or psychologicalconsequences. 02/06/2025 9:40 AM EDT 02/06/2025 11:07 AM EDT us Jo Chatman DO LAB URINE ORDERABLES Final R esult [facility] [address] [place] [phone] * Vitamin D, 25-Hydroxy, Total, Immunoassay (02/06/2025 9:40 AM EDT) Vitamin D 25-OH Total 41.8 >30 ng/mL [facility] Comment: Health Based Reference Values*< 20 ng/mL Fivqqmxah57-87 ng/mL Insufficient> 30 ng/mL Sufficient*Michael MCPHERSON. N Engl J Med. 2007;357:266-280There is no well-established upper level of normal vitamin Dlevels. Some laboratories use 50 ng/mL as an upper limit ofnormal. However, toxicity is patient-dependent and may occurat any level. Careful correlation with the patient'spresentation is necessary and, if there is concern forvitamin D toxicity, treatment should be consideredirrespective of the serum level.Care must be taken in interpreting Vitamin D results fromdifferent laboratories and methodologies. Published datademonstrated that results from patients undergoinghemodialysis may show a negative bias when tested withvarious automated 25-OH vitamin D assays when compared toLC-MS/MS.When testing samples from patients whose predominant form ofVitamin D is Vitamin D2, such as patients receiving VitaminD2 supplementation, results that are subtherapeutic shouldbe confirmed with another method such as LC-MS/MS. Blood Venous blood specimen / Unknown 02/06/2025 9:40 AM EDT 02/06/2025 11:51 AM EDT us Jo Chatman DO LAB BLOOD ORDERABLES Final R esult [facility] [address] [place] [phone] * T-SPOT??.TB (02/06/2025 9:40 AM EDT) T Spot TB Negative Negative [facility] Comment:A negative test resu lt does not exclude the possibilityof exposure to or infection with Mycobacteriumtuberculosis (M. tuberculosis). Patients with recentexposure to TB infected individuals exhibiting anegative T-SPOT.TB result should be considered forretesting within 6 weeks or if other relevant clinicalsymptoms indicate. Results from T-SPOT.TB testing mustbe used in conjunction with each individual'sepidemiological history, current medical status,and results of other diagnostic evaluations.The T-SPOT.TB test is qualitative and results arereported as positive, borderline, or negative, giventhat the test controls perform as expected. In linewith the Centers for Disease Control and Prevention's2010 recommendation to report quantitative measurementsalongside the qualitative result, the laboratoryprovides spot counts for informational purposes only.The T-SPOT.TB test should not be interpreted as aquantitative test. TS PANEL A 4 [facility] TS PANEL B 2 [facility] Negative Control Passed [facility] Positive Control Passed [facility] Comment:For additional infor cruz, please refer tohttp://education.[employer]/faq/SZL907(This link is being provided for informational/educational purposes only.)THIS TEST WAS PERFORMED AT:[id number] [place] [address]XZTWOXUAVERY FINNEGAN MD,PHD 02/06/2025 9:40 AM EDT 02/06/2025 11:51 AM EDT Jo Chatman DO LAB BLOOD ORDERABLES Final R esult [facility] [address] [place] [phone] [phone] * (ABNORMAL) Measles, Mumps, and Rubella (MMR) Antibodies??(IgG) Panel, Immune Status (02/06/2025 9:40 AM EDT) Mumps Virus IgG Antibody <9.00(A) AU/mL [facility] Comment:AU/mL Interpretation ------- <9.00 Not consistent with immunity9.00-10.99 Equivocal>10.99 Consistent with immunityThe presence of mumps IgG antibody suggests immunizationor past or current infection with mumps virus. Rubella IgG Antibody 6.49 Index [facility] Comment:Index Interpretation ----- <0.90 Not consistent with immunity 0.90-0.99 Equivocal > or = 1.00 Consistent with immunityThe presence of rubella IgG antibody suggestsimmunization or past or current infection withrubella virus.THIS TEST WAS PERFORMED AT:[email or web address] [address] [phone] ARRIETA MD Rubeola IgG (Measles) >300.00 AU/mL [facility] Comment:AU/mL Interpretation ----- <13.50 Not consistent with plaxdjhr16.50-16.49 Equivocal>16.49 Consistent with immunityThe presence of measles IgG suggests immunization orpast or current infection with measles virus.For additional information, please refer tohttp://education.[employer]/faq/RMU897(This link is being provided for informational/educational purposes only.) Blood Venous blood specimen / Unknown 02/06/2025 9:40 AM EDT 02/06/2025 11:51 AM EDT Jo Lurdes LAB BLOOD ORDERABLES Final R esult Performing Organization Address [facility]/ZIP Co de Phone Number [facility] [address] [place] [phone] * Lyme Disease Ab with Reflex to Blot (IgG, IgM) (02/06/2025 9:40 AM EDT) [facility] Lyme Antibody Screen <0.90 index [facility] Comment:Index Interpretation ----- < 0.90 Negative 0.90-1.09 Equivocal > 1.09 PositiveAs recommended by the Food and Drug Administration(FDA), all samples with positive or equivocalresults in a Borrelia burgdorferi antibody screenwill be tested using a blot method. Positive orequivocal screening test results should not beinterpreted as truly positive until verified as suchusing a supplemental assay (e.g., B. burgdorferi blot).The screening test and/or blot for B. burgdorferiantibodies may be falsely negative in early stagesof Lyme disease, including the period when erythemamigrans is apparent.THIS TEST WAS PERFORMED AT:[facility] [place] [phone] ARRIETA MD Lyme Blot TNP [facility] 02/06/2025 9:40 AM EDT 02/06/2025 11:51 AM EDT Jo Chatman DO LAB BLOOD ORDERABLES Final R esult Performing Organization Address [facility]/ZIP Co de Phone Number [facility] [address] [place] [phone] * Hepatitis C Antibody with Reflex to HCV, RNA, Quantitative, Real-Time PCR (02/06/2025 9:40 AM EDT) Hepatitis C Antibody Nonreactive Nonreactive [facility] Comment:Antibodies to HCV no t detected; does not exclude early acuteHCV infection. Blood Venous blood specimen / Unknown 02/06/2025 9:40 AM EDT 02/06/2025 11:51 AM EDT us Jo Chatman DO LAB BLOOD ORDERABLES Final R esult Performing Organization Address [facility]/ZIP Co de Phone Number [facility] [address] [place] [phone] * Hepatitis A Antibody, Total (02/06/2025 9:40 AM EDT) Hepatitis A Antibody IgG Nonreactive Nonreactive [facility] Blood Venous blood specimen / Unknown 02/06/2025 9:40 AM EDT 02/06/2025 11:51 AM EDT Jo Chatman DO LAB BLOOD ORDERABLES Final R esult Performing Organization Address [facility] Co de Phone Number [facility] [address] [place] [phone] * Hepatitis B surface antigen, EIA (02/06/2025 9:40 AM EDT) Hepatitis B Surface Ag Negative Negative [facility] Blood Venous blood specimen / Unknown 02/06/2025 9:40 AM EDT 02/06/2025 11:51 AM EDT Jo Chatman DO LAB BLOOD ORDERABLES Final R esult Performing Organization Address [facility] Co de Phone Number [facility] [address] [place] [phone] * Hepatitis B Core Antibody, Total (02/06/2025 9:40 AM EDT) Hepatitis B Core Antibody Nonreactive Nonreactive [facility] Blood Venous blood specimen / Unknown 02/06/2025 9:40 AM EDT 02/06/2025 11:51 AM EDT Jo Lurdes DO LAB BLOOD ORDERABLES Final R esult Performing Organization Address [facility] Co de Phone Number [facility] [address] [place] [phone] * RPR (Monitor) with Reflex to??Titer (02/06/2025 9:40 AM EDT) RPR (Monitor) w/Refl Titer NON-REACTI VE NON-REACT BHASKAR [facility] Comment:THIS TEST WAS PERFOR MED AT:[facility] [place] [phone] ARRIETA MD Rapid Plasma Reagin Ab Titer TNP [facility] Blood Venous blood specimen / Unknown 02/06/2025 9:40 AM EDT 02/06/2025 11:51 AM EDT Jo Lurdes LAB BLOOD ORDERABLES Final R esult Performing Organization Address [facility] Co de Phone Number [facility] [address] [place] [phone] * HIV-1/2 Antigen and Antibodies, Fourth Generation, with Reflexes (02/06/2025 9:40 AM EDT) HIV AB/AG Nonreactive Nonreactive [facility] Comment:HIV-1 p24 Ag and/or HIV-1/HIV-2 Ab not detected.A test result that is nonreactive does not exclude thepossibility of exposure to or infection with HIV-1 and/orHIV-2. Nonreactive results in this assay for individualswith prior exposure to HIV-1 and/or HIV-2 may be due toantigen and antibody levels that are below the limit ofdetection of this assay.The [email or web address] HIV Ag/Ab Combo assay result andsupplemental assay results should be interpreted inconjunction with the patient's clinical presentation,history and other laboratory results. If the results areinconsistent with clinical evidence, additional testing issuggested to confirm the result. Blood Venous blood specimen / Unknown 02/06/2025 9:40 AM EDT 02/06/2025 11:51 AM EDT Jo Chatman DO LAB BLOOD ORDERABLES Final R esult Performing Organization Address City/[facility]/ZIP Co de Phone Number [facility] [address] [place] [phone] * Hepatitis B Surface Antibody, Qualitative (02/06/2025 9:40 AM EDT) ~Hepatitis B Surface Antibody NONREACTIVE Nonreactive [facility] Comment:Nonreactive: < 8.00 mIU/mL Blood Venous blood specimen / Unknown 02/06/2025 9:40 AM EDT 02/06/2025 11:51 AM EDT Jo Chatman DO LAB BLOOD ORDERABLES Final R esult Performing Organization Address [facility]/ZIP Co de Phone Number [facility] [address] [place] [phone] * Sed Rate by Modified Tiren (02/06/2025 9:40 AM EDT) Erythrocyte Sedimentation Rate 5 0 - 20 MM/HR [facility] Comment:Patients with polycy themia and many hemoglobin abnormalitiesmay have depressed sed rates whereas patients with anemiamay have elevated sed rates. Blood Venous blood specimen / Unknown 02/06/2025 9:40 AM EDT 02/06/2025 11:22 AM EDT Jo Chatman DO LAB BLOOD ORDERABLES Final R esult Performing Organization Address City/[facility]/ZIP Co de Phone Number [facility] [address] [place] [phone] * (ABNORMAL) CBC (02/06/2025 9:40 AM EDT) [facility] White Blood Count 3.5(L) 4.8 - 10.8 X10*3/uL [facility] Red Blood Count 5.09 4.20 - 5.50 X10*6/uL [facility] Hemoglobin 12.5 12.0 - 16.0 g/dl [facility] Hematocrit 39.5 37.0 - 47.0 % [facility] Mean Corpuscular Volume 77.6(L) 80.0 - 98.0 fL [facility] Mean Corpuscular Hemoglobin 24.6(L) 27.0 - 33.0 pg [facility] Mean Corpuscular HGB Conc 31.6 31.0 - 35.0 g/dl [facility] Red Cell Distribution Width 15.9 11.0 - 16.0 % [facility] Platelet Count 246 160 - 400 X10*3/uL [facility] Mean Platelet Volume 10.7 9.4 - 12.3 fL [facility] NRBC Pct Auto 0.0 0.0 - 0.2 /100WBC [facility] NRBC Abs Auto 0.000 0.0 - 0.012 X10*3/uL [facility] Blood Venous blood specimen / Unknown 02/06/2025 9:40 AM EDT 02/06/2025 11:22 AM EDT Jo Chatman DO LAB BLOOD ORDERABLES Final R esult [facility] [address] [place] [phone] * Rheumatoid Factor (02/06/2025 9:40 AM EDT) [facility] Rheumatoid Factor <13.0 <15.0 IU/mL [facility] Blood Venous blood specimen / Unknown 02/06/2025 9:40 AM EDT 02/06/2025 11:51 AM EDT Jo Chatman LAB BLOOD ORDERABLES Final R esult Performing Organization Address [facility] Co de Phone Number [facility] [address] [place] [phone] * Varicella zoster antibody, IgG (02/06/2025 9:40 AM EDT) Pathologist [facility] Varicella IgG Antibody 45.30 S/CO [facility] Comment:Signal to Cut-off S/ CO Interpretation --------- <1.00 Negative - Antibody not detected > or = 1.00 Positive - Antibody detected A positive result indicates that the patient has antibody to VZV but does not differentiate between an active or past infection. The clinical diagnosis must be interpreted in conjunction with the clinical signs and symptoms of the patient. This assay reliably measures immunity due to previous infection but may not be sensitive enough to detect antibodies induced by vaccination. Thus, a negative result in a vaccinated individual does not necessarily indicate susceptibility to VZV infection. A more sensitive test for vaccination-induced immunity is Varicella Zoster Virus Antibody Immunity Screen, ACIF.THIS TEST WAS PERFORMED AT:[email or web address] [address] [id number] ARRIETA MD Blood Venous blood specimen / Unknown 02/06/2025 9:40 AM EDT 02/06/2025 11:51 AM EDT Jo Lurdes DO LAB BLOOD ORDERABLES Final R esult Performing Organization Address [facility] Co de Phone Number [facility] [address] [place] [phone] * C-reactive Protein (02/06/2025 9:40 AM EDT) C Reactive Protein <0.10 < or = 0.50 mg/dL [facility] Blood Venous blood specimen / Unknown 02/06/2025 9:40 AM EDT 02/06/2025 11:51 AM EDT Jo Chatman DO LAB BLOOD ORDERABLES Final R esult [facility] [address] [place] [phone] * YOON Screen,IFA, with Reflex to Titer and Pattern (02/06/2025 9:40 AM EDT) Pathologist [facility] Anti Nuclear Antibody Screen NEGATIVE NEGATIVE [facility] Comment:YOON IFA is a first l ine screen for detecting thepresence of up to approximately 150 autoantibodies invarious autoimmune diseases. A negative YOON IFA resultsuggests an YOON-associated autoimmune disease is notpresent at this time, but is not definitive. If thereis high clinical suspicion for Sjogren's syndrome,testing for anti-SS-A/Ro antibody should be considered.Anti-Cristina-1 antibody should be considered for clinicallysuspected inflammatory myopathies.AC-0: NegativeInternational Consensus on YOON Patterns(https://doi.org/10.1515/hojt-9823-3860)For additional information, please refer [email or web address](This link is being provided for informational/educational purposes only.)THIS TEST WAS PERFORMED AT:[employer] [place] [id number] ARRIETA MD YOON Titer TNP [facility] YOON Pattern TNP [facility] YOON TITER 2 (REF LAB) [facility] YOON PATTERN 3 [facility] Blood Venous blood specimen / Unknown 02/06/2025 9:40 AM EDT 02/06/2025 11:51 AM EDT us Jo Pengjorge DO LAB BLOOD ORDERABLES Final R esult Performing Organization Address [facility] Co de Phone Number [facility] [address] [place] [phone] * TSH (02/06/2025 9:40 AM EDT) Thyroid Stimulating Hormone 0.39 0.32 - 4.0 uIU/mL [facility] Comment:TSH 3rd Generation ( [facility]) Blood Venous blood specimen / Unknown 02/06/2025 9:40 AM EDT 02/06/2025 11:51 AM EDT Jo Lurdes DO LAB BLOOD ORDERABLES Final R esult Performing Organization Address [facility] Co de Phone Number [facility] [address] [place] [phone] * T4, Free (02/06/2025 9:40 AM EDT) Free T4 (Free Thyroxine) 1.18 0.71 - 1.85 ng/dL [facility] Blood Venous blood specimen / Unknown 02/06/2025 9:40 AM EDT 02/06/2025 11:51 AM EDT Jo Lurdes DO LAB BLOOD ORDERABLES Final R esult Performing Organization Address [facility] Co de Phone Number [facility] [address] [place] [phone] * Hemoglobin A1c (02/06/2025 9:40 AM EDT) Hemoglobin A1c 5.8 <6.0 % [facility] Comment:Hemoglobin A1C Refer ence Range Adults: 4.8 - 6.0 % Non diabetic: < 6.0 % Goal: < 7.0 %Additional Action Suggested: > 8.0 %Note: Hemoglobin A1c results are invalid for patients with abnormal amounts of HbF. Blood transfusions may impact the HbA1c concentration in the patient sample. Estimated Average Glucose 120 mg/dL [facility] Comment:eAG = Estimated ave rage glucose which is %A1C expressed asaverage glucose, using the formula of the U6P-FuzrzozFlvlyeq Glucose study (ADAG), Diabetes Care, Vol.31,#8,Mar. 2007 Blood Venous blood specimen / Unknown 02/06/2025 9:40 AM EDT 02/06/2025 11:22 AM EDT us Jo Chatman DO LAB BLOOD ORDERABLES Final R esult Performing Organization Address [facility] Co de Phone Number [facility] [address] [place] [phone] * Hepatic Function Panel (02/06/2025 9:40 AM EDT) Bilirubin, Total 0.3 0.0 - 1.0 mg/dL [facility] Bilirubin, Direct 0.1 0.0 - 0.5 mg/dL [facility] Aspartate Amino Transferase 28 5 - 31 U/L [facility] Alanine Aminotransferase 20 0 - 31 U/L [facility] Total Protein 7.6 6.5 - 8.0 g/dL [facility] Albumin Level 4.8 3.5 - 5.0 g/dL [facility] Alkaline Phosphatase 42 39 - 117 U/L [facility] Blood Venous blood specimen / Unknown 02/06/2025 9:40 AM EDT 02/06/2025 11:51 AM EDT Jo Chatman DO LAB BLOOD ORDERABLES Final R esult Performing Organization Address [facility] de Phone Number [facility] [address] [place] [phone] * (ABNORMAL) Lipid Panel, Standard (02/06/2025 9:40 AM EDT) Only the most recent of2 resultswithin the time period is included. Triglycerides 101 <150 mg/dL [facility] Comment:Desirable Triglyceri de: less than 150 mg/dLBorderline High Triglyceride 150-199 mg/dLHigh Triglyceride: 200-499 mg/dLVery High Triglyceride: greater than or equal to 5OO mg/dL Cholesterol 191 <200 mg/dL [facility] Comment:Desirable Cholestero l: less than 200 mg/dLBorderline High Cholesterol: 200-239 mg/dLHigh Cholesterol: greater than 239 mg/dL LDL Cholesterol Calculated 112(H) <100 mg/dL [facility] Comment:Desirable LDL: less than 100 mg/dLNear Optimal/Above Optimal LDL: 110- 129 mg/dLBorderline High LDL: 130-159 mg/dLHigh LDL: 160-189 mg/dLVery High LDL: greater than or equal to 190 mg/dL HDL Cholesterol 59 >40 mg/dL [facility] Comment:Desirable HDL: great er than 40 mg/dL Note: This HDL assay may give artificially low results in patients with liver disease. Blood Venous blood specimen / Unknown 02/06/2025 9:40 AM EDT 02/06/2025 11:51 AM EDT us Jo Chatman DO LAB BLOOD ORDERABLES Final R esult [facility] [address], [place] [phone] * Basic Metabolic Panel (02/06/2025 9:40 AM EDT) Sodium 141 135 - 145 mmol/L [facility] Potassium 4.2 3.3 - 5.1 mmol/L [facility] Chloride 106 96 - 108 mmol/L [facility] Carbon Dioxide 27 22 - 29 mmol/L [facility] Anion Gap 12 12 - 20 [facility] Urea Nitrogen (BUN) 15 9 - 16 mg/dL [facility] Creatinine, Serum 0.66 0.5 - 1.4 mg/dL [facility] Estimated Glomerular Filt Rate >60 [facility] Comment:Chronic Kidney Disea se: Estimated GFR < 60 mL/min/1.63t0Gluycl Kidney Disease: Estimated GFR < 15 mL/min/1.73m2 Glucose 108 60 - 115 mg/dL [facility] Calcium 9.3 8.4 - 10.2 mg/dL [facility] Blood Venous blood specimen / Unknown 02/06/2025 9:40 AM EDT 02/06/2025 11:51 AM EDT us Jo Chatman DO LAB BLOOD ORDERABLES Final R esult [facility] [address] [place] [phone] * XR CERVICAL SPINE 3V (02/05/2025 1:40 PM EDT) Anatomical Region Laterality Modality Abdomen Radiographic Connie ging 02/05/2025 1:40 PM EDT Narrative 02/05/2025 3:24 PM EDT [address] [address] XRay Report Signed Patient: Teri Morales MR#: [id number] 4 : 1975 Acct:[id number] Age/Sex: 49 / F ADM Date: 02/05/25 Loc: [facility] Attending Dr: Jo Chatman DO Ordering Physician: Jo Chatman DO Date of Service: 02/05/25 Procedure(s): XR cervical spine 3V Accession Number(s): [id number] cc: Jo Chatman DO EXAMINATION: XR CERVICAL [...] Dyllan Swift MD 02/05/2025 03:20 PM EDT RP Dictated By: Dyllan Swift MD Signed By: <Electronically signed by Dyllan Swift MD in OV> 02/05/25 1520 DD/ 1340 TD/TT: 02/05/25 1400 Chronic Specialist: Procedure Note Donotuseinterpreter, Image - 02/05/[address] [address] XRay Report Signed Patient: Teri Morales EMR#: [id number] 4 : 1975Acct:[id number] Age/Sex: 49 / FADM Date: 02/05/25 [facility]: Jo Chatman DO Ordering Physician: Jo Chatman DO Date of Service: 02/05/25 Procedure(s): XR cervical spine 3V Accession Number(s): [id number] cc: Jo Chatman DO EXAMINATION: XR CERVICAL [...] Dyllan Swift MD 02/05/2025 03:20 PM EDT RP Dictated By: Dyllan Swift MD Signed By: <Electronically signed by Dyllan Swift MD in OV> 02/05/25 1520 DD/ 1340 TD/TT: 02/05/25 1400 Chronic Specialist: Jo Chatman DO IMG XR PROCEDURES Final Resu lt * XR Hand 3+ Views Right (02/05/2025 1:27 PM EDT) Anatomical Region Laterality Modality Upper Extremities, Hand Right Radiogra phic Imaging 02/05/2025 1:27 PM EDT Narrative 02/05/2025 3:17 PM EDT [address] [address] XRay Report Signed Patient: Teri Morales MR#: [id number] 4 : 1975 Acct:[id number] Age/Sex: 49 / F ADM Date: 02/05/25 Loc: [facility] Attending Dr: Jo Chatman DO Ordering Physician: Jo Chatman DO Date of Service: 02/05/25 Procedure(s): XR hand RT min 3V Accession Number(s): [id number] cc: Jo Chatman DO EXAMINATION: XR HAND 3 OR MORE VIEWS RIGHT HISTORY: diffuse joint and bone pain, worsening neck and back pain COMPARISON: There are no prior studies available for comparison. FINDINGS: Three views of the right hand are submitted. Osseous mineralization is normal. There is no fracture or dislocation. The joint spaces are preserved. The soft tissues are unremarkable. XR/XR hand RT min 3V IMPRESSION: Unremarkable examination of the right hand. Electronically signed by: Dyllan Swift MD 02/05/2025 03:14 PM EDT Dictated By: Dyllan Swift MD Signed By: <Electronically signed by Dyllan Swift MD in OV> 02/05/25 1514 DD/ 1327 TD/TT: 02/05/25 1340 Chronic Specialist: Procedure Note Pasquale, Image - 02/05/[address] [address] XRay Report Signed Patient: Teri Morales EMR#: [id number] 4 : 1975Acct:[id number] Age/Sex: 49 / FADM Date: 02/05/25 Loc: [facility] Attending Dr: Jo Chatman DO Ordering Physician: Jo Chatman DO Date of Service: 02/05/25 Procedure(s): XR hand RT min 3V Accession Number(s): [id number] cc: Jo Chatman DO EXAMINATION: XR HAND 3 OR MORE VIEWS RIGHT HISTORY: diffuse joint and bone pain, worsening neck and back pain COMPARISON: There are no prior studies available for comparison. FINDINGS: Three views of the right hand are submitted. Osseous mineralization is normal. There is no fracture or dislocation. The joint spaces are preserved. The soft tissues are unremarkable. XR/XR hand RT min 3V IMPRESSION: Unremarkable examination of the right hand. Electronically signed by: Dyllan Swift MD 02/05/2025 03:14 PM EDT Dictated By: Dyllan Swift MD Signed By: <Electronically signed by Dyllan Swift MD in OV> 02/05/25 1514 DD/ 1327 TD/TT: 02/05/25 1340 Chronic Specialist: Jo Chatman DO IMG XR PROCEDURES Final Resu lt * XR Hand 3+ Views Left (02/05/2025 1:25 PM EDT) Anatomical Region Laterality Modality Upper Extremities, Hand Left Radiogra phic Imaging 02/05/2025 1:25 PM EDT Narrative 02/05/2025 3:18 PM EDT [address] [address] XRay Report Signed Patient: Teri Morales MR#: [id number] 4 : 1975 Acct:[id number] Age/Sex: 49 / F ADM Date: 02/05/25 Loc: [facility] Attending Dr: Jo Chatman DO Ordering Physician: Jo Chatman DO Date of Service: 02/05/25 Procedure(s): XR hand LT min 3V Accession Number(s): [id number] cc: Jo Chatman DO EXAMINATION: XR HAND 3 OR MORE VIEWS LEFT HISTORY: diffuse joint and bone pain, worsening neck and back pain COMPARISON: There are no prior studies available for comparison. FINDINGS: Four views of the left hand are submitted. Osseous mineralization is normal. There is no fracture or dislocation. The joint spaces are preserved. The soft tissues are unremarkable. XR/XR hand LT min 3V IMPRESSION: Unremarkable examination of the left hand. Electronically signed by: Dyllan Swift MD 02/05/2025 03:15 PM EDT RP Dictated By: Dyllan Swift MD Signed By: <Electronically signed by Dyllan Swift MD in OV> 02/05/25 1515 DD/ 1325 TD/TT: 02/05/25 1340 Chronic Specialist: Procedure Note Donotuseinterpreter, Image - 02/05/[address] [address] XRay Report Signed Patient: Teri Morales EMR#: [id number] 4 : 1975Acct:[id number] Age/Sex: 49 / FADM Date: 02/05/25 Loc: [facility] Attending Dr: Jo Chatman DO Ordering Physician: Jo Chatman DO Date of Service: 02/05/25 Procedure(s): XR hand LT min 3V Accession Number(s): [id number] cc: Jo Chatman DO EXAMINATION: XR HAND 3 OR MORE VIEWS LEFT HISTORY: diffuse joint and bone pain, worsening neck and back pain COMPARISON: There are no prior studies available for comparison. FINDINGS: Four views of the left hand are submitted. Osseous mineralization is normal. There is no fracture or dislocation. The joint spaces are preserved. The soft tissues are unremarkable. XR/XR hand LT min 3V IMPRESSION: Unremarkable examination of the left hand. Electronically signed by: Dyllan Swift MD 02/05/2025 03:15 PM EDT RP Dictated By: Dyllan Swift MD Signed By: <Electronically signed by Dylaln Swift MD in OV> 02/05/25 1515 DD/ 1325 TD/TT: 02/05/25 1340 Chronic Specialist: Jo Chatman DO IMG XR PROCEDURES Final Resu lt * XR Lumbar Spine 2-3 Views (02/05/2025 1:13 PM EDT) Anatomical Region Laterality Modality Spine, L-spine Radiographic Connie ging 02/05/2025 1:13 PM EDT Narrative 02/06/2025 4:00 [place] [address] XRay Report Signed Patient: Teri Morales MR#: [id number] 4 : 1975 Acct:[id number] Age/Sex: 49 / F ADM Date: 02/05/25 [facility]: Jo Chatman DO Ordering Physician: Jo Chatman DO Date of Service: 02/05/25 Procedure(s): XR lumbar spine 2-3V Accession Number(s): [id number] cc: Jo Chatman DO EXAMINATION: XR LUMBOSACRAL SPINE CLINICAL INFORMATION: diffuse joint and bone pain, worsening neck and back pain COMPARISON: None available. TECHNIQUE: Three views of the lumbosacral spine. FINDINGS: Surgical clips are seen projecting left of L4-5 and along the left sacrum and in the lower right hemipelvis. There are 5 nonrib-bearing lumbar segments. Vertebral body height and alignment is preserved. There is mild disc space narrowing T12-L1 and L1-2. XR/XR lumbar spine 2-3V IMPRESSION: Mild degenerative disc disease T12-L1 and L1-2 Electronically signed by: Jim Birch MD 02/06/2025 03:57 PM EDT RP Dictated By: Jim Birch MD Signed By: <Electronically signed by Jim Birch MD in OV> 02/06/25 1557 DD/ 1313 TD/TT: 02/05/25 1325 Chronic Specialist: Procedure Note Donotuseinterpreter, Image - 02/06/[address] [address] XRay Report Signed Patient: Teri Morales EMR#: [id number] 4 : 1975Acct:[id number] Age/Sex: 49 / FADM Date: 02/05/25 Loc: [facility] Attending Dr: Jo Chatman DO Ordering Physician: Jo Chatman DO Date of Service: 02/05/25 Procedure(s): XR lumbar spine 2-3V Accession Number(s): [id number] cc: Jo Chatman DO EXAMINATION: XR LUMBOSACRAL SPINE CLINICAL INFORMATION: diffuse joint and bone pain, worsening neck and back pain COMPARISON: None available. TECHNIQUE: Three views of the lumbosacral spine. FINDINGS: Surgical clips are seen projecting left of L4-5 and along the left sacrum and in the lower right hemipelvis. There are 5 nonrib-bearing lumbar segments. Vertebral body height and alignment is preserved. There is mild disc space narrowing T12-L1 and L1-2. XR/XR lumbar spine 2-3V IMPRESSION: Mild degenerative disc disease T12-L1 and L1-2 Electronically signed by: Jim Birch MD 02/06/2025 03:57 PM EDT Dictated By: Jim Birch MD Signed By: <Electronically signed by Jim Birch MD in OV> 02/06/25 1557 DD/ 1313 TD/TT: 02/05/25 132 Chronic Specialist: Jo Chatman DO IMG XR PROCEDURES Final Resu lt * XR Knee 4+ Views Right (02/05/2025 1:10 PM EDT) Anatomical Region Laterality Modality Lower Extremities, Knee Right Radiogra phic Imaging 02/05/2025 1:10 PM EDT Narrative 02/05/2025 3:23 PM EDT [address] [address] XRay Report Signed Patient: Teri Morales MR#: [id number] 4 : 1975 Acct:[id number] Age/Sex: 49 / F ADM Date: 02/05/25 Loc: [facility] Attending Dr: Jo Chatman DO Ordering Physician: Jo Chatman DO Date of Service: 02/05/25 Procedure(s): XR knee RT 4V Accession Number(s): [id number] cc: Jo Chatman DO EXAMINATION: XR KNEE 4 OR MORE VIEWS RIGHT HISTORY: diffuse joint and bone pain, worsening neck and back pain COMPARISON: Comparison is made with the prior examination dated 11/27/2018. FINDINGS: Four views of the right knee are submitted. Osseous mineralization is normal. There is no fracture or dislocation. The joint spaces are preserved. There is a small joint effusion. XR/XR knee RT 4V IMPRESSION: Small joint effusion. Otherwise unremarkable examination of the right knee. Electronically signed by: Dyllan Swift MD 02/05/2025 03:17 PM EDT Dictated By: Dyllan Swift MD Signed By: <Electronically signed by Dyllan Swift MD in OV> 02/05/25 1517 DD/ 1310 TD/TT: 02/05/25 1340 Chronic Specialist: Procedure Note Donotuseinterpreter, Image - 02/05/[address] [address] XRay Report Signed Patient: Teri Morales EMR#: [id number] 4 : 1975Acct:[id number] Age/Sex: 49 / FADM Date: 02/05/25 Loc: [facility] Attending Dr: Jo Chatman DO Ordering Physician: Jo Chatman DO Date of Service: 02/05/25 Procedure(s): XR knee RT 4V Accession Number(s): [id number] cc: Jo Chatman DO EXAMINATION: XR KNEE 4 OR MORE VIEWS RIGHT HISTORY: diffuse joint and bone pain, worsening neck and back pain COMPARISON: Comparison is made with the prior examination dated 11/27/2018. FINDINGS: Four views of the right knee are submitted. Osseous mineralization is normal. There is no fracture or dislocation. The joint spaces are preserved. There is a small joint effusion. XR/XR knee RT 4V IMPRESSION: Small joint effusion. Otherwise unremarkable examination of the right knee. Electronically signed by: Dyllan Swift MD 02/05/2025 03:17 PM EDT Dictated By: Dyllan Swift MD Signed By: <Electronically signed by Dyllan Swift MD in OV> 02/05/25 1517 DD/ 1310 TD/TT: 02/05/25 1340 Chronic Specialist: Jo Chatman DO IMG XR PROCEDURES Final Resu lt * XR Knee 4+ Views Left (02/05/2025 1:07 PM EDT) Anatomical Region Laterality Modality Lower Extremities, Knee Left Radiogra phic Imaging 02/05/2025 1:07 PM EDT Narrative 02/05/2025 3:23 [place] [address] XRay Report Signed Patient: Teri Morales MR#: [id number] 4 : 1975 Acct:[id number] Age/Sex: 49 / F ADM Date: 02/05/25 Loc: HO.[facility]X Attending Dr: Jo Chatman DO Ordering Physician: Jo Chatman DO Date of Service: 02/05/25 Procedure(s): XR knee LT 4V Accession Number(s): [id number] cc: Jo Chatman DO EXAMINATION: XR KNEE 4 OR MORE VIEWS LEFT HISTORY: diffuse joint and bone pain, worsening neck and back pain COMPARISON: Comparison is made with the prior examination dated 07/23/2019. FINDINGS: Four views of the left knee are submitted. Osseous mineralization is normal. There is no fracture or dislocation. There is minimal degenerative change of the medial compartment with osteophyte formation. The remaining joint spaces are maintained. The soft tissues are unremarkable. There is no joint effusion. XR/XR knee LT 4V IMPRESSION: Minimal degenerative changes of the medial compartment. Electronically signed by: Dyllan Swift MD 02/05/2025 03:18 PM EDT RP Dictated By: Dyllan Swift MD Signed By: <Electronically signed by Dyllan Swift MD in OV> 02/05/25 1518 DD/ 1307 TD/TT: 02/05/25 1340 Chronic Specialist: Procedure Note Donotuseinterpreter, Image - 02/05/2025 [place] [address] XRay Report Signed Patient: Teri Morales EMR#: [id number] 4 : 1975Acct:[id number] Age/Sex: 49 / FADM Date: 02/05/25 Loc: HO.HHCX Attending Dr: Jo Chatman DO Ordering Physician: Jo Chatman DO Date of Service: 02/05/25 Procedure(s): XR knee LT 4V Accession Number(s): [id number] cc: Jo Chatman DO EXAMINATION: XR KNEE 4 OR MORE VIEWS LEFT HISTORY: diffuse joint and bone pain, worsening neck and back pain COMPARISON: Comparison is made with the prior examination dated 07/23/2019. FINDINGS: Four views of the left knee are submitted. Osseous mineralization is normal. There is no fracture or dislocation. There is minimal degenerative change of the medial compartment with osteophyte formation. The remaining joint spaces are maintained. The soft tissues are unremarkable. There is no joint effusion. XR/XR knee LT 4V IMPRESSION: Minimal degenerative changes of the medial compartment. Electronically signed by: Dyllan Swift MD 02/05/2025 03:18 PM EDT RP Dictated By: Dyllan Swift MD Signed By: <Electronically signed by Dyllan Swift MD in OV> 02/05/25 1518 DD/ 1307 TD/TT: 02/05/25 1340 Chronic Specialist: us Jo Chatman DO IMG XR PROCEDURES Final Resu lt * TSH W/Reflex to FT4 (01/29/2025 9:22 AM EDT) TSH reflex Free T4 0.78 0.32 - 4.0 uIU/mL [facility] Blood Venous blood specimen / Unknown 01/29/2025 9:22 AM EDT 01/29/2025 11:19 AM EDT Fabien Arguello MD LAB BLOOD ORDERABLES Final Resul t [facility] [address] [place] [address] [phone] * (ABNORMAL) CBC auto differential (01/29/2025 9:22 AM EDT) White Blood Count 4.4(L) 4.8 - 10.8 X10*3/uL [facility] Red Blood Count 4.90 4.20 - 5.50 X10*6/uL [facility] Hemoglobin 12.0 12.0 - 16.0 g/dl [facility] Hematocrit 37.8 37.0 - 47.0 % [facility] Mean Corpuscular Volume 77.1(L) 80.0 - 98.0 fL [facility] Mean Corpuscular Hemoglobin 24.5(L) 27.0 - 33.0 pg [facility] Mean Corpuscular HGB Conc 31.7 31.0 - 35.0 g/dl [facility] Red Cell Distribution Width 15.7 11.0 - 16.0 % [facility] Platelet Count 238 160 - 400 X10*3/uL [facility] Mean Platelet Volume 10.7 9.4 - 12.3 fL [facility] Neutrophils Percent Auto 32.0(L) 45 - 73 % [facility] Imm Gran Pct Auto 0.2 0.0 - 0.4 % [facility] Lymphocytes Percent Auto 53.5(H) 20 - 40 % [facility] Monocytes Percent Auto 12.5(H) 2 - 11 % [facility] Eosinophils Percent Auto 1.1 0 - 4 % [facility] Basophils Percent Auto 0.7 0 - 2 % [facility] NRBC Pct Auto 0.0 0.0 - 0.2 /100WBC [facility] Neutrophils Absolute Auto 1.4(L) 2.0 - 8.3 x10*3/uL [facility] Imm Gran Abs Auto 0.01 0.00 - 0.03 X10*3/uL [facility] Lymphocytes Absolute Auto 2.4 1.2 - 4.9 X10*3/uL [facility] Monocytes Absolute Auto 0.6 0.1 - 1.2 X10*3/uL [facility] Eosinophils Absolute Auto 0.1 0.0 - 0.4 X10*3/uL [facility] Basophils Absolute Auto 0.0 0.0 - 0.2 X10*3/uL [facility] NRBC Abs Auto 0.000 0.0 - 0.012 X10*3/uL [facility] Blood Venous blood specimen / Unknown 01/29/2025 9:22 AM EDT 01/29/2025 11:19 AM EDT us Fabien Arguello MD LAB BLOOD ORDERABLES Final Resul t [facility] [address] [place] [address] [phone] * Valproic Acid Total (01/29/2025 9:22 AM EDT) Valproate 63.9 50.0 - 100.0 mcg/mL [facility] Comment:Last dose was taken on 01/29/20 at 1900. Blood Venous blood specimen / Unknown 01/29/2025 9:22 AM EDT 01/29/2025 11:19 AM EDT Narrative [facility] - 01/29/2025 12:14 PM EDT [id number] Fabien Arguello MD LAB BLOOD ORDERABLES Final Resul t [facility] [address] [place] [address] [phone] * Comprehensive Metabolic Panel (01/29/2025 9:22 AM EDT) Sodium 140 135 - 145 mmol/L [facility] Potassium 4.5 3.3 - 5.1 mmol/L [facility] Chloride 105 96 - 108 mmol/L [facility] Carbon Dioxide 27 22 - 29 mmol/L [facility] Anion Gap 13 12 - 20 [facility] Urea Nitrogen (BUN) 13 9 - 16 mg/dL [facility] Creatinine, Serum 0.68 0.5 - 1.4 mg/dL [facility] Estimated Glomerular Filt Rate >60 [facility] Comment:Chronic Kidney Disea se: Estimated GFR < 60 mL/min/1.53n2Hnzbwv Kidney Disease: Estimated GFR < 15 mL/min/1.73m2 Glucose 89 60 - 115 mg/dL [facility] Calcium 9.3 8.4 - 10.2 mg/dL [facility] Bilirubin, Total 0.3 0.0 - 1.0 mg/dL [facility] Aspartate Amino Transferase 20 5 - 31 U/L [facility] Alanine Aminotransferase 16 0 - 31 U/L [facility] Total Protein 7.1 6.5 - 8.0 g/dL [facility] Albumin Level 4.5 3.5 - 5.0 g/dL [facility] Alkaline Phosphatase 40 39 - 117 U/L [facility] Blood Venous blood specimen / Unknown 01/29/2025 9:22 AM EDT 01/29/2025 11:19 AM EDT Fabien Arguello MD LAB BLOOD ORDERABLES Final Resul t [facility] [address] [place] [address] [phone] from Last 3 Months [facility] Care Teams Corporate Director Talent Assessment Relationship Specialty Start Date End Date Jo Chatman DO [address] [place] [phone] PCP - General Family Medicine 02/05/25
--- OUTSIDE RECORDS SUMMARY | 2025-04-11 15:47 | XMS_ITS | Encounter Summary ---
Author Organization [employer] Address [address] [facility] 7t [place] [address] Care Team Providers Care Grinder Hand Name Role Phone DonnieJo hussein Primary Care Provider + [phone] Encounter Details Date Type Department Care Team ([facility] st Contact Info) Description 04/10/2025 Population Health Risk Score [facility] (C3) Department [address] [facility] [address] [place] [phone] Provider, Population Health Generic Social History Tobacco Use Types Packs/Day Years Used Date Smoking Tobacco: Never Passive Smoke Exposure: Never Smokeless Tobacco: Never Alcohol Use Standard [...] PM EDT documented as of this encounter Plan of Treatment Not on file documented as of this encounter Visit Diagnoses Not on filedocumented in this encounter Additional Health Concerns Assessment Noted Time PHQ-9 Depression Total Score: 21 025 1:52 PM EDT documented as of this encounter Care Teams Grinder Hand Relationship Specialty Start Date End Date Jo Chatman DO [address] [place] [phone] PCP - General Family Medicine 02/05/25 documented as of this encounter
[2025-04-11 16:10] LABS: MANUAL DIFF FLAG NO
[2025-04-11 16:19] LABS: Hematocrit 39.2 % (37.0-47.0); Hemoglobin 12.2 g/dl (12.0-16.0); Imm Gran Abs Auto 0.01 X10*3/uL (0.00-0.03); Imm Gran Pct Auto 0.2 % (0.0-0.4); Lymphocytes Absolute Auto 2.2 X10*3/uL (1.2-4.9); Mean Corpuscular HGB Conc 31.1 g/dl (31.0-35.0); Mean Corpuscular Hemoglobin 24.2 pg (27.0-33.0); Mean Corpuscular Volume 77.6 fL (80.0-98.0); NRBC Abs Auto 0.000 X10*3/uL (0.0-0.012); NRBC Pct Auto 0.0 /100WBC (0.0-0.2); Platelet Count 310 X10*3/uL (160-400); Red Blood Count 5.05 X10*6/uL (4.20-5.50); White Blood Count 5.0 X10*3/uL (4.8-10.8)
[2025-04-11 16:34] LABS: Alanine Aminotransferase 33 U/L (0-31); Albumin Level 4.9 g/dL (3.5-5.0); Alkaline Phosphatase 53 U/L (39-117); Anion Gap 12 (12-20); Aspartate Amino Transferase 27 U/L (5-31); Blood Urea Nitrogen 16 mg/dL (9-16); Calcium 9.6 mg/dL (8.4-10.2); Carbon Dioxide 28 mmol/L (22-29); Chloride 105 mmol/L (96-108); Estimated Glomerular Filt Rate > 60; Potassium 4.2 mmol/L (3.3-5.1); Sodium 141 mmol/L (135-145); Total Protein 7.7 g/dL (6.5-8.0)
[2025-04-11 17:28] LABS: Free T4 (Free Thyroxine) 0.92 ng/dL (0.71-1.85)
== END 2025-04-11 14:29 | disposition home or self-care (01) ==
LOC: HO.HHCL 14:28
PROVIDERS: PCP Family Medicine; Visit Provider Registered Nurse Psychiatric/Mental Health
DX: Z13.89 Encounter for screening for other disorder (principal)
CPT/HCPCS: 36415; 80053; 80164; 82248; 84439; 84443; 85025

== ENCOUNTER 2025-06-03 15:37 | Outpatient (REF) | payer MEDICAID, SELFPAY ==
[2025-06-03 17:57] LABS: MANUAL DIFF FLAG NO
[2025-06-03 18:09] LABS: Hematocrit 39.7 % (37.0-47.0); Hemoglobin 12.3 g/dl (12.0-16.0); Imm Gran Abs Auto 0.01 X10*3/uL (0.00-0.03); Imm Gran Pct Auto 0.2 % (0.0-0.4); Lymphocytes Absolute Auto 2.4 X10*3/uL (1.2-4.9); Mean Corpuscular HGB Conc 31.0 g/dl (31.0-35.0); Mean Corpuscular Hemoglobin 23.8 pg (27.0-33.0); Mean Corpuscular Volume 76.9 fL (80.0-98.0); NRBC Abs Auto 0.000 X10*3/uL (0.0-0.012); NRBC Pct Auto 0.0 /100WBC (0.0-0.2); Platelet Count 225 X10*3/uL (160-400); Red Blood Count 5.16 X10*6/uL (4.20-5.50); White Blood Count 4.9 X10*3/uL (4.8-10.8)
[2025-06-03 18:39] LABS: Alanine Aminotransferase 14 U/L (0-31); Albumin Level 4.9 g/dL (3.5-5.0); Alkaline Phosphatase 39 U/L (39-117); Anion Gap 14 (12-20); Aspartate Amino Transferase 24 U/L (5-31); Blood Urea Nitrogen 13 mg/dL (9-16); Calcium 9.3 mg/dL (8.4-10.2); Carbon Dioxide 25 mmol/L (22-29); Chloride 104 mmol/L (96-108); Cholesterol 192 mg/dL (<200); Estimated Glomerular Filt Rate > 60; HDL Cholesterol 53 mg/dL (>40); Potassium 4.3 mmol/L (3.3-5.1); Sodium 139 mmol/L (135-145); Total Protein 7.7 g/dL (6.5-8.0); Triglycerides 83 mg/dL (<150)
--- OUTSIDE RECORDS SUMMARY | 2025-06-03 18:41 | XMS_ITS | Clinical Summary ---
Author Organization [facility] Address [address] [place] [phone] Phone Care Team Providers Care Software Quality Tester Name Role Phone Fabien Arguello MD Primary Care Provider [phone] Allergies Active Allergy Reactions Criticality Noted Date [...] current pathological fracture 02/27/2025 Bipolar disorder, unspecified ([facility] V24, [facility] V28) 02/05/2025 SYLVESTER (generalized anxiety disorder) 02/05/2025 Osteopenia of multiple sites 04/01/2020 GERD (gastroesophageal reflux disease) 9 Malignant neoplasm of right female breast ([facility] V24, [facility] V28) 02/17/2018 BRCA1 gene mutation positive in female 8 Acquired hypothyroidism 11/01/2017 Insomnia 11/01/2017 Anxiety 07/12/2017 Genetic susceptibility to malignant neoplasm of breast 07/12/2017 Encounters Date Type Department Care Team Description 04/24/2025 1:30 PM EDT - 04/24/2025 11:59 PM EDT Hospital Encounter [facility] Bone Density [address] [place] [phone] Osteopenia, unspecified location Discharge Disposition: Home or Self Care 03/08/2025 2:42 PM EDT - 03/08/2025 11:59 PM EDT Hospital Encounter [facility] [address] [facility] [address] [place] [phone] Karan Osorio MD Osteopenia of multiple sites (Primary Dx); Age-related osteoporosis without current pathological fracture Discharge Disposition: Home or Self Care from Last 3 Months Immunizations Immunization Administration Dates Next Due Influenza Quadravalent, MDCK [...] SURGICAL HISTORY PROCEDURE: MASTECTOMY BRA OOPHORECTOMY PROCEDURE: MD OOPHORECTOMY PARTIAL/TOTAL UNI/BI BREAST LUMPECTOMY 01/26/2016 Right [...] Care Team (Late st Contact Info) Description 09/06/2025 3:00 PM EST Appointment [facility] [address] [phone] 02/26/2026 11:00 AM EDT Office Visit [facility] Hematology Oncology [address] [place] [phone] Karan Hodge MD [address] [place] [phone] Health Maintenance Due Date Last Done Comments Breast Cancer Screening 1975 Colorectal Cancer Screening: Colonoscopy 1975 Hepatitis B Vaccines (1 of 3 - 19+ 3-dose series) 1992 Zoster Vaccines (1 of 2) 1992 Cervical Cancer Screening: Pap Smear 1994 COVID-19 Vaccine (3 - Pfizer risk series) 01/11/2021 12/14/2020, 11/23/2020 Social Influencers of Health Screening 07/15/2022 Pneumococcal Vaccine: 50+ Years (2 of 2 - PCV) 01/19/2023 01/19/2022 Depression Screening 08/08/2024 Influenza Vaccine (#1) 2025 , 06/09/2021, 04/30/2019, Additional history exists DTaP,Tdap,and Td Vaccines (2 - Td or Tdap) 06/16/2026 06/16/2016 Cholesterol Screening (Lipid Panel) 02/06/2030 02/06/2025, 01/29/2025 Osteoporosis Screening (Bone Density Screening) 04/24/2035 04/24/2025, 10/17/2019 RSV Immunization Adult Patients (1 - 1-dose 75+ series) 2048 HIV [...] Procedure Name Priority Date/Time Associated Diagnosis Comments BD BONE DENSITY DXA AXIAL SKELETON Routine 04/24/2025 1:55 PM EDT Osteopenia, unspecified location from Last 3 Months Results * BD Bone Density DXA Axial Skeleton (04/24/2025 1:55 PM EDT) Anatomical Region Laterality Modality Wrist, Hip, L-spine Bone Densito metry 04/24/2025 4:18 PM EDT Impressions 04/24/2025 4:19 PM EDT Osteopenia. Telerad KLEBER ([id number]) -------- FINAL REPORT -------- Dictated By: Elle Delgadillo Dictated Date: 04/24/2025 16:18 ET Assigned Physician: Elle Delgadillo Reviewed and Electronically Signed By: Elle Delgadillo Signed Date: 04/24/2025 16:19 ET Workstation ID: [id number] Transcribed By: Self Edit Transcribed Date: 04/24/2025 16:18 ET Narrative 04/24/2025 4:19 PM EDT History: Low estrogen state due to menopause. Personal history of breast carcinoma. Comparison: 10/17/19 Findings: Bone densitometry is performed utilizing dual energy x-ray absorptiometry (DXA) in the [employer] unit. The lumbar spine and proximal femora are evaluated in the AP projection. The FRAX questionaire was completed. The results indicate low bone mass (osteopenia), with a left femoral neck T- score of -1.7. The Z score is -1.0, indicating low bone mineral density for age. No statistically significant change is seen. The detailed DEXA report will be mailed to the referring physician's office. [employer]em[employer] FRAX: 10-year Probability of Fracture: Major Osteoporotic 2.7 percent Hip 0.2 percent. Procedure Note Elle Delgadillo MD - 04/24/2025 History: Low estrogen state due to menopause. Personal history of breastcarcinoma. Comparison: 10/17/19 Findings: Bone densitometry is performed utilizing dual energy x-ray absorptiometry(DXA) in the [employer] unit. The lumbar spine and proximal femora areevaluated in the AP projection. The FRAX questionaire was completed. The results indicate low bone mass (osteopenia), with a left femoral neckT-score of -1.7. The Z score is -1.0, indicating low bone mineral densityfor age. No statistically significant change is seen. The detailed DEXA reportwill be mailed to the referring physician's office. [employer] FRAX: 10-year Probability of Fracture: Major Osteoporotic 2.7percent Hip 0.2 percent. IMPRESSION: Osteopenia. Telerad PA ([id number]) -------- FINAL REPORT -------- Dictated By: Elle Delgadillo Dictated Date: 04/24/2025 16:18 ET Assigned Physician: Elle Delgadillo Reviewed and Electronically Signed By: Elle Delgadillo Signed Date: 04/24/2025 16:19 ET Workstation ID: [id number] Transcribed By: Self Edit Transcribed Date: 04/24/2025 16:18 ET Subramony SubMckayla SINGH IMG DXA PROCEDURES Final Result from Last 3 Months Insurance [place] - [place] [facility] [employer] Care Teams Software Quality Tester Relationship Specialty Start Date End Date aFbien Arguello MD [address] [place] [phone] PCP - General Family Medicine 01/09/25
--- OUTSIDE RECORDS SUMMARY | 2025-06-03 18:41 | XMS_ITS | Clinical Summary ---
Author Organization [employer] Address [address] [facility] 7[address] [place] [address] Care Team Providers Care Inlayer Name Role Phone GinetteJo patel Primary Care Provider + [phone] Allergies Active Allergy Reactions Criticality Noted Date Comments Penicillin V Rash Low 01/08/2025 Medications * This document contains information received from the source organization and may not represent a complete record from that organization. divalproex (Depakote) 500 MG EC tabletIndication s:Bipolar affective disorder, remission status unspecified (CMS/HCC) ([facility]) Take 1 tablet (500 mg) by mouth 3 times daily. Do not crush, chew, or split. 90 tablet 2 01/08/2025 Active traZODone (Desyrel) 50 MG tabletIndication s:Bipolar affective disorder, remission status unspecified (CMS/HCC) (HCC) Take 1 tablet (50 mg) by mouth if needed at bedtime for sleep. 30 tablet 2 01/08/2025 Active venlafaxine XR (Effexor XR) 150 MG 24 hr tabletIndication s:Bipolar affective disorder, remission status unspecified (CMS/HCC) (HCC) Take 1 tablet (150 mg) by mouth with breakfast. Do not crush, chew, or split. 30 tablet 2 01/08/2025 Active naproxen (Naprosyn) [...] needed for pain 30 tablet 03/07/2025 Active levothyroxine (Synthroid, Levoxyl) 150 MCG tabletIndication s:Hypothyroidism , unspecified type TAKE 1 TABLET BY MOUTH EVERY DAY 90 tablet 05/03/2025 Active Active Problems Problem Noted Date Diagnosed [...] illness, and recent move. Teri relocated from [place] six months ago. Current triggers are causing significant increase of sxs. Pt unable to self-regulate with own coping strategies. More information is needed to make official diagnosis for bipolar dx. Due to severity of sxs patient prefers to isolate from others. Various aspects of her life has being affected by the patient's current mental health challenges. Bipolar disorder, unspecified ([facility]) 02/06/20 25 Assessment & Plan (02/13/2025 12:18 PM EDT): [...] illness, and recent move. Teri relocated from [place] six months ago. Current triggers are causing [...] right breast in female, estrogen receptor positive (CMS/HCC) 07/12/2017 Encounters Date Type Department Care Team Description 05/02/2025 Refill [facility] [address] [place] [phone] Fabien Arguello MD Hypothyroidism, unspecified type 04/10/2025 Population Health Risk Score [facility] () Department [address] [phone] Provider, Population Health Generic 03/21/2025 Telephone [facility] [address] [place] [phone] Jo Chatman DO Medication Question 03/12/2025 Patient Outreach [facility] [address] [place], [place] [phone] Jo Chatman DO Transition Of Care (Tcm) (HDF unscheduled ) 03/07/2025 1:00 PM EDT Office Visit [facility] [address] [place] [address] Viridiana Salter FNP Pain in both knees, unspecified chronicity (Primary Dx); Jenkins cyst, left; Tendinopathy of knee 03/07/2025 Travel 03/07/2025 Telephone [facility] [address] [place] [address] Jo Chatman DO Nurse Triage from Last 3 Months Immunizations Immunization Administration [...] of 2) 2023 COVID-19 Vaccine (3 - 2024- season) 2025 12/14/2020, 11/23/2020 Influenza Vaccine (#1) 2025 , 05/13/2022, 06/09/2021, Additional history exists Depression Monitoring 08/08/2025 02/05/2025, [...] Procedure Name Priority Date/Time Associated Diagnosis Comments HEPATITIS C AB W/REFL TO HCV RNA, QN, PCR Routine 02/06/2025 9:40 AM EDT Routine history and physical examination of adult HIV 1/2 ANTIGEN/ANTIBODY, FOURTH GENERATION W/RFL Routine 02/06/2025 9:40 AM EDT Routine history and physical examination of adult HEMOGLOBIN A1C Routine 02/06/2025 9:40 AM EDT Routine history and physical examination of adult from Last 3 Months or Most Recently Relevant to Health Maintenance Results * Hepatitis C Antibody with Reflex to HCV, RNA, Quantitative, Real-Time PCR (02/06/2025 9:40 AM EDT) Hepatitis C Antibody Nonreactive Nonreactive [facility] Comment:Antibodies to HCV no t detected; does not exclude early acuteHCV infection. Blood Venous blood specimen / Unknown 02/06/2025 9:40 AM EDT 02/06/2025 11:51 AM EDT Jo Lurdes DO LAB BLOOD ORDERABLES Final R esult [facility] [address] [place] [phone] * HIV-1/2 Antigen and Antibodies, Fourth Generation, with Reflexes (02/06/2025 9:40 AM EDT) HIV AB/AG Nonreactive Nonreactive [facility] Comment:HIV-1 p24 Ag and/or HIV-1/HIV-2 Ab not detected.A test result that is nonreactive does not exclude thepossibility of exposure to or infection with HIV-1 and/orHIV-2. Nonreactive results in this assay for individualswith prior exposure to HIV-1 and/or HIV-2 may be due toantigen and antibody levels that are below the limit ofdetection of this assay.The Md7 HIV Ag/Ab Combo assay result andsupplemental assay results should be interpreted inconjunction with the patient's clinical presentation,history and other laboratory results. If the results areinconsistent with clinical evidence, additional testing issuggested to confirm the result. Blood Venous blood specimen / Unknown 02/06/2025 9:40 AM EDT 02/06/2025 11:51 AM EDT Jo Chatman DO LAB BLOOD ORDERABLES Final R esult [facility] [address] [place] [phone] * Hemoglobin A1c (02/06/2025 9:40 AM EDT) Hemoglobin A1c 5.8 <6.0 % [facility] Comment:Hemoglobin A1C Refer ence Range Adults: 4.8 - 6.0 % Non diabetic: < 6.0 % Goal: < 7.0 %Additional Action Suggested: > 8.0 %Note: Hemoglobin A1c results are invalid for patients with abnormal amounts of HbF. Blood transfusions may impact the HbA1c concentration in the patient sample. Estimated Average Glucose 120 mg/dL [facility] Comment:eAG = Estimated ave rage glucose which is %A1C expressed asaverage glucose, using the formula of the [id number] Glucose study (ADAG), Diabetes Care, Vol.31,#8,Mar. 2007 Blood Venous blood specimen / Unknown 02/06/2025 9:40 AM EDT 02/06/2025 11:22 AM EDT us Jo Chatman DO LAB BLOOD ORDERABLES Final R esult [facility] [address] [place] [address] [phone] from Last 3 Months or Most Recently Relevant to Health Maintenance Insurance [employer] C3 Care Teams Inlayer Relationship Specialty Start Date End Date Jo Chatman DO [address] [place] [address] PCP - General Family Medicine 02/05/25
--- OUTSIDE RECORDS SUMMARY | 2025-06-03 18:41 | XMS_ITS | Clinical Summary ---
Author Organization [facility] Address [address] [place] [address] Care Team Providers Care Manager Social Responsibility Name Role Phone Richard Anderson Primary Care [...] 01/26/2016:Stage IA(pT1b, pN0, cM0, G1, ER: Positive, OR: Positive, HER2: Negative, Oncotype DX score: 10) [...] age to complete this topic Care Teams Manager Social Responsibility Relationship Specialty Start Date End Date Richard Anderson PA [address] [place] [phone] PCP - General Physician Corporate Counselor 06/26/21
--- OUTSIDE RECORDS SUMMARY | 2025-06-03 18:41 | XMS_ITS ---
Author Organization [facility] Address [address] [place] [address] Care Team Providers Care Cigar Bander Hand Name Role Phone Richard Anderson Primary Care Provider Active Problems Problem Noted Date Diagnosed Date COVID-19 virus infection 10/03/2020 Osteopenia of multiple sites 04/01/2020 Weight loss 10/02/2019 BRCA1 gene mutation positive in female 8 Acquired hypothyroidism 11/01/2017 Insomnia 11/01/2017 Malignant neoplasm of upper- outer quadrant of right breast in female, estrogen receptor positive 07/12/2017 Cancer Staging:Pathologic stage from 01/26/2016:Stage IA(pT1b, pN0, cM0, G1, ER: Positive, TX: Positive, HER2: Negative, Oncotype DX score: 10) - Signed by Karan Martinez MD on 11/19/2018 Genetic susceptibility to malignant neoplasm of breast 07/12/2017 Hot flashes related to aromatase inhibitor thera py 07/12/2017 Anxiety 07/12/2017 Nausea 07/12/2017 New daily persistent headache 07/12/2017 Current Oncology Plans No current plan information found. Past Plans Radiation Treatments * No radiation treatments are documented for this patient in [facility]. Treatments may have been administered in another system. Resolved Problems Problem Noted Date Diagnosed Date Resolved Date BRCA2 gene mutation positive in female 01/31/2018 07/25/2018
== END 2025-06-03 15:38 | disposition home or self-care (01) ==
LOC: HO.HHCL 15:37
PROVIDERS: PCP Family Medicine; Visit Provider Registered Nurse Psychiatric/Mental Health
DX: Z79.899 Other long term (current) drug therapy (principal)
CPT/HCPCS: 36415; 80053; 80061; 82248; 84443; 85025